=== PATIENT | male | born 1965 | race Caucasian/White ===

== ENCOUNTER → 2025-03-06 | Outpatient (CLI) | payer BC, SELFPAY ==
[2025-03-06 16:50] LABS: PSA,Total- Diagnostic 12.30 ng/mL (0.00-4.00)
== END | disposition home or self-care (01) ==
LOC: LAB 14:54
PROVIDERS: PCP Registered Nurse; Referring Provider Nurse Practitioner; Visit Provider Nurse Practitioner
DX: R97.20 Elevated prostate specific antigen [PSA] (principal)
CPT/HCPCS: 36415; 84153

== ENCOUNTER → 2025-03-15 | Outpatient (CLI) | payer BC, SELFPAY ==
--- NOTE | 2025-03-15 13:00 | PROSBIL_PTH ---
PATIENT: GUILLERMO ESPANA LOC: [facility] U#:[id number] AGE/SX: 59/M ROOM: RE03/15/[address]: Dr. Romaine Davis MD : 1965 BED: DIS: 03/15/2025 SPEC #: [id number] RECD: 03/15/25 16:26 STATUS: MARIE RECecil #: [id number] ALESSIA: 03/15/25 13:[address]: Romaine Davis DEPT: SURGICAL PATHOLOGY RECD BY: Estuardo Franco ENTERED: 03/16/25 13:18 SP TYPE: PROST BX JAMARCUS DR: Lona Delacruz, LAWN CARE SPECIALIST-C Tissues: A - PROSTATE RIGHT B - PROSTATE RIGHT C - PROSTATE RIGHT D - PROSTATE LEFT E - PROSTATE LEFT F - PROSTATE LEFT Procedures: PROSTATE BX Immunohistochemical Stains HEADER OPERATION: Prostate biopsy PRE-OP DIAGNOSIS: Elevated PSA TISSUE SUBMITTED: A - Right apex, B - Right mid, C - Right base, D - Left apex, E - Left mid, F - Left base MICROSCOPIC DIAGNOSIS A. Prostate, right apex, core biopsy: - Adenocarcinoma Junior 3+3=6, one of one core, 25% of the specimen. B. Prostate, right mid, core biopsy: - Benign prostate tissue. C. Prostate, right base, core biopsy: - High grade PIN. - PIN4 IHC supports the diagnosis. D. Prostate, left apex, core biopsy: - High grade PIN. - PIN4 IHC supports the diagnosis. E. Prostate, left mid, core biopsy: - Adenocarcinoma Junior 3+3=6, two of two cores, 50% of the specimen. F. Prostate, left base, core biopsy: - Adenocarcinoma Junior 3+4=7 (10% pattern 4), two of two cores, 95% of the specimen. MICROSCOPIC DESCRIPTION Slides are reviewed. ?All matched controls reacted appropriately. These tests were developed and their performance characteristics determined by [facility]. They may not have been cleared or approved by the U.S. Food and Drug Administration. The FDA has determined that such clearance or approval is not necessary.? The above immunohistochemical?markers and/or special stains have been reviewed by the Pathologist. GROSS DESCRIPTION Received in 6 formalin containers labeled with the patient's name and date of . Designated as: A. RA is a jennings tissue core, 1.8 cm in length by 0.1 cm in diameter. Entirely submitted in 1 cassette. B. RM are 2 jennings tissue cores, 1.4-1.6 cm in length by 0.1 cm in diameter. Entirely submitted in 1 cassette. C. RB are 2 jennings tissue cores, 1.3-1.5 cm in length by 0.1 cm in diameter. Entirely submitted in 1 cassette. D. LA is a jennings tissue core, 1.6 cm in length by 0.1 cm in diameter. Entirely submitted in 1 cassette. E. LM are 2 jennings tissue cores, 1.3-1.7 cm in length by 0.1 cm in diameter. Entirely submitted in 1 cassette. F. LB are 2 jennings tissue cores, 1.2-1.4 cm in length by 0.1 cm in diameter. Entirely submitted in 1 cassette. OH 03/16/2025 CPT:39954j7,30952c4
== END | disposition home or self-care (01) ==
LOC: LABSPEC 16:14
PROVIDERS: PCP Registered Nurse; Referring Provider Urology; Visit Provider Urology
DX: C61 Malignant neoplasm of prostate (principal)
CPT/HCPCS: 88305; 88342; G0416

== ENCOUNTER → 2025-04-03 | Outpatient (CLI) | payer BC, SELFPAY ==
--- NOTE | 2025-04-03 08:30 | PET_ITS ---
PROCEDURE: PET/CT TUMOR BASE -THIGH INIT 04/03/2025 REASON FOR EXAM: 59 y/o M with MALIGNANT NEOPLAM OF PROSTATE TECHNIQUE: Procedure Code: PETPTCTINIT Modality: PT Procedure: PET/CT TUMOR BASE -THIGH INIT After intravenous injection of 9.8 millicuries of PSMA Ga-68 Illuccix and a standard uptake period, a noncontrast CT scan, followed by a PET scan were acquired along the length of the body from the top of the skull to the mid thighs. The noncontrast helical CT imaging was performed without breath hold, for attenuation correction of PET images and anatomic Synthes correlation, but not for primary interpretation, as it is not of the standard diagnostic quality. Images were reviewed in the axial, coronal and sagittal planes. RADIATION DOSE SUMMARY: Effective Dose: Approximately 7 mSv for a standard whole-body PET scan Organ Doses: Varies by organ, with higher doses typically to the bladder, liver, and brain CTDI: 10.52 DLP: 1165.52 mGy cm COMPARISON: COMPARISON FROM CT, PET OR OTHER PERTINENT EXAMS: None. FINDINGS: Examination of the 3D tomographic PET images demonstrates expected uptake in the lacrimal glands, salivary glands, liver, spleen, kidneys, bowel and bladder. The intracranial contents appear unremarkable. There is nasal septal deviation to the right. There is no abnormal activity in the pulmonary parenchyma. There are no pleural effusions. The heart size is normal. There is calcific vascular disease of the coronary arteries. There is a large, partially paraesophageal hiatal hernia. There is an umbilical hernia containing normal fat measuring 2.1 cm in diameter. The prostate gland measures 4 point 7 cm in transverse dimension and contains coarse calcifications. Prostate bed: In the left peripheral zone, near the lower pole of the gland, there is an area of intense activity measuring 2.2 x 1.6 cm, max SUV 9.7. Lymph nodes: There is no abnormal lymph node activity. Skeleton: There is no abnormal skeletal activity. Uptake time: 60 minutes. Mediastinal blood pool: Max SUV, 1.9 BMI: 30.0 PET/PET/CT Tumor Base -Thigh Init IMPRESSION: 1. Intense activity in the left side of the prostate gland consistent with pro state carcinoma. 2. There is no abnormal lymph node or skeletal activity. 3. Large, partially paraesophageal hiatal hernia. E-PSMA score: 4 E- PSMA scoring: Score = 1: Benign lesion without abnormal PSMA uptake. Score = 2: Probably benign lesion: Faint PSMA uptake (equal to or lower than ba ckground) in the site atypical for prostate cancer. Score = 3: Equivocal finding: Faint uptake in a site typical for prostate cance r or intense uptake in a site atypical prostate cancer. Score = 4: Probably prostate cancer: Intense uptake and a site typical for pros almeida cancer, but without definitive findings on CT. Score = 5: Definitive evidence of prostate cancer: Intense uptake in a typical site of prostate cancer with definitive findings on CT. Reading Location: [id number]
== END | disposition home or self-care (01) ==
LOC: ONC 08:09
PROVIDERS: PCP Registered Nurse; Referring Provider Urology; Visit Provider Urology
DX: C61 Malignant neoplasm of prostate (principal)
CPT/HCPCS: 78815; A9595

== ENCOUNTER 2025-04-27 10:47 | Observation (INO) | payer BC, SELFPAY ==
--- NOTE | 2025-04-13 15:48 | PAT.ANE_ITS ---
Pre-Assessment Diagnosis/Proposed Procedure Planned Operative Procedure(s): ROBOTIC RADICAL PROSTATECTOMY AND LYMPH NODES Anesthesia History Anesthesia History - drop wire stringer: Anesthesia History - drop wire stringer Hx Hospitalization No 04/13/25 13:34 Any Problems With Anesthesia No 04/13/25 13:34 Cholinesterase deficiency No 04/13/25 13:34 You/Your Family Experience No 04/13/25 13:34 fever (hyperthermia) with Relationship Recent Exposure to Contagious Disease Does patient have nerve No 04/13/25 13:34 stimulator Patient instructed to have device shut off --Does patient have Pacemaker or ICD? When Was Last Pacemaker Check QUESTION #4 FULL TEXT: You/Your Family Experience fever (hyperthermia) with Anesthesia Last Oral Intake Last Oral intake: Last Oral Intake NPO since Meds taken in AM with sips of water? Meds patient instructed to take am of surgery PONV PONV - drop wire stringer: PONV - drop wire stringer Female No 04/13/25 13:34 HX of Motion Sickness No 04/13/25 13:34 HX of N/V After Surgery No 04/13/25 13:34 Non-Smoker Yes 04/13/25 13:34 Duration of Surgery greater Yes 04/13/25 13:34 than 60 minutes Number of Risk Factors 2 04/13/25 13:34 PONV Score Moderate Risk 04/13/25 13:34 Respiratory Assessment Respiratory Assessment - drop wire stringer: Respiratory Tract Infection Hx - drop wire stringer Hx Respiratory Tract Infection No 04/13/25 13:34 STOP Sleep Apnea STOP Sleep Apnea - drop wire stringer: STOP Sleep Apnea - drop wire stringer Hx Hypertension Yes: PER PT, CONTROLLED ON 04/13/25 13:34 MEDS Hx Sleep Apnea No 04/13/25 13:34 CPAP BIPAP Do you snore loudly (louder No 04/13/25 13:34 than talking or can be heard Do you often feel tired/ No 04/13/25 13:34 fatigued/ sleepy during daytime? Has anyone observed you stop No 04/13/25 13:34 breathing during sleep? STOP Results Negative 04/13/25 13:34 QUESTION #5 FULL TEXT : Do you snore loudly (louder than talking or can be heard through closed doors)? Tobacco Use History Tobacco Use History - drop wire stringer: Tobacco Use History - drop wire stringer Tobacco Use Smoking Status Never smoker 04/13/25 13:34 Hx Tobacco Use No 04/13/25 13:34 Years Smoking Packs Smoked per Day Smoking Cessation Date was within the last 15 years Hx Smoking Cessation Date Hx Smoking Cessation Counseling Hematologic Medial History Hematologic Hx - drop wire stringer: Hematologic Medical Hx - patient access coordinator Hx of Blood Transfusion No 04/13/25 13:34 Hx of Transfusion in last 3 No 04/13/25 13:34 Months Date of Last Transfusion (if within last 3 months) Ever experience any problems No 04/13/25 13:34 with transfusion(s)? Specify any problems Hx of Preganancy in last 3 N/A 04/13/25 13:34 Months Nurse Filling Out Transfusion MGRIFFITH 04/13/25 13:34 & Questions: Date: 04/13/25 04/13/25 13:34 Time: 13:36 04/13/25 13:34 Patient unable to answer at this time (ie. confused, unrespo /Reproduction History /Reproductive History - drop wire stringer: /Reproductive Hx- drop wire stringer Hx Now No 04/13/25 13:34 Gestational Age (in weeks): EDC: Hx Hx Para Hx Section SAB No 04/13/25 13:34 PFSH Medical History (Updated 04/13/25 @ 13:50 by Evelia Iyer) Wears partial dentures Wears dentures Cancer Non-smoker History of irregular heartbeat Hypertension History of stress test Chest pain Home Medications ?Medication ?Instructions ?Recorded ?Last Taken ?Type lisinopril 10 mg tablet 10 mg PO DAILY HTN 04/13/25 Unknown History multivit,Ca,min-iron 8 mg-folic 1 tab PO DAILY SUPPLEM ENT 04/13/25 Unknown History acid 200 mcg-lycopene 600 mcg tablet (Centrum Men) omega 3 350 mg-dha 235 mg-epa 90 1 cap PO DAILY SUPPLE MENT 04/13/25 Unknown History mg-fish oil 597 mg capsule,delay rel ([place]-3) Allergy/AdvReac Type Severity Reaction Status Date / Time No Known Allergies Allergy Verified 04/13/25 13:30 Surgical History (Updated 04/13/25 @ 13:45 by Evelia Iyer) History of colonoscopy History of tonsillectomy History of mandibular surgery Social History Smoking Status: Never smoker Audit: Pertinent Findings Pertinent Findings EKG Perinent findings: nsr Stress test pertinent findings: negative Recommendation Anesthesia Recommendation Anesthesia recommendation: OPTIMIZED for anesthesia
[2025-04-27] VITALS (15 sets, daily range): BP systolic 114–146; BP diastolic 70–91; PULSE 73–98; RESP 16; TEMP 36.1–37.2; O2SAT 91–99; BMI 29.3
[2025-04-27] MEDS: Lactated Ringers 1,000 ML 15 ML IV (09:04)
[2025-04-27 09:07] LABS: Hematocrit 47.1 % (40-54); Hemoglobin 16.9 g/dL (13.0-16.5); Immature Granulocytes Count 0.010 X10^3/uL (0.0-0.0); Mean Corp Hgb Conc 35.9 g/dL (32-36); Mean Corpuscular Volume 87.4 fL (80-94); Mean Platelet Vol. 9.9 fl (6.2-12.0); NRBC Flagged by Analyzer 0 % (0-5); Platelet Count 205 K/mm3 (150-450); RBC Distribution Width CV 12.5 % (11.6-14.6); RBC Distribution Width SD 40.0 fl (35.1-43.9); Red Blood Count 5.39 M/mm3 (4.6-6.2); White Blood Count 4.0 K/mm3 (4.4-11.0)
--- NOTE | 2025-04-27 09:19 | PCM.PRE.AN2 ---
ASA Classification* ASA Classification ASA Classification: 2 Assessment & Plan Anesthesia* Anesthesia Assessment Anesthesia Assessment: Discussed sedation and/or anesthesia options, risks, benefits, and alternatives with patient/parents/legal guardian/POA. Questions invited. The patient/parents/legal guardian/POA seems to understand and agrees to proceed with anesthesia plan. Reviewed the physical assessment, medical history, allergy history and patient home medications list prior to surgery/procedure/anesthetic and documented any changes. Performed airway and anesthesia risk assessments. Anesthesia Type Anesthesia Type: General History Source History Obtained from:: Patient and Chart Anesthesia Focused Assessment* Temperature: 98 F Pulse Rate: 73 Blood Pressure: 121/91 Respiratory Rate: 16 Pulse Ox: 99 Oxygen Delivery Method: Room Air Airway Assessment Mouth opens: >3 cm Mallampati Score: II Teeth Condition: Dentures and Missing Neck Range of motion (ROM): Full ROM Labs Anesthesia Preop lab: CBC WBC, (4.4-11.0) 4.0 K/mm3 L Today, 08:55 RBC, (4.6-6.2) 5.39 M/mm3 Today, 08:55 Hgb, (13.0-16.5) 16.9 g/dL H Today, 08:55 Hct, (40-54) 47.1 % Today, 08:55 Plt Count, (150-450) 205 K/mm3 Today, 08:55 CHEMISTRY COAG Pre-Assessment Diagnosis/Proposed Procedure Planned Operative Procedure(s): ROBOTIC RADICAL PROSTATECTOMY AND LYMPH NODES Anesthesia History Anesthesia History - voice over artist: Anesthesia History - voice over artist Hx Hospitalization No 04/13/25 13:34 Any Problems With Anesthesia No 04/13/25 13:34 Cholinesterase deficiency No 04/13/25 13:34 You/Your Family Experience No 04/13/25 13:34 fever (hyperthermia) with Relationship Recent Exposure to Contagious No 04/27/25 09:06 Disease Does patient have nerve No 04/13/25 13:34 stimulator Patient instructed to have device shut off --Does patient have Pacemaker No 04/27/25 09:06 or ICD? When Was Last Pacemaker Check QUESTION #4 FULL TEXT: You/Your Family Experience fever (hyperthermia) with Anesthesia Last Oral Intake Last Oral intake: Last Oral Intake NPO since 22:00 04/27/25 09:06 Meds taken in AM with sips of No 04/27/25 09:06 water? Meds patient instructed to take am of surgery PONV PONV - voice over artist: PONV - voice over artist Female No 04/13/25 13:34 HX of Motion Sickness No 04/13/25 13:34 HX of N/V After Surgery No 04/13/25 13:34 Non-Smoker Yes 04/13/25 13:34 Duration of Surgery greater Yes 04/13/25 13:34 than 60 minutes Number of Risk Factors 2 04/13/25 13:34 PONV Score Moderate Risk 04/13/25 13:34 Height & Weight Height & Weight: Anesthesia: Height & Weight Height 5 ft 11 in 04/27/25 09:06 Weight: 95.5 kg 04/27/25 09:06 Body Mass Index (BMI) 29.3 04/27/25 09:06 Respiratory Assessment Respiratory Assessment - voice over artist: Respiratory Tract Infection Hx - voice over artist Hx Respiratory Tract Infection No 04/13/25 13:34 STOP Sleep Apnea STOP Sleep Apnea - voice over artist: STOP Sleep Apnea - voice over artist Hx Hypertension Yes: PER PT, CONTROLLED ON 04/13/25 13:34 MEDS Hx Sleep Apnea No 04/13/25 13:34 CPAP BIPAP Do you snore loudly (louder No 04/13/25 13:34 than talking or can be heard Do you often feel tired/ No 04/13/25 13:34 fatigued/ sleepy during daytime? Has anyone observed you stop No 04/13/25 13:34 breathing during sleep? STOP Results Negative 04/13/25 13:34 QUESTION #5 FULL TEXT : Do you snore loudly (louder than talking or can be heard through closed doors)? 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 Specify any problems Hx of Preganancy in last 3 N/A 04/13/25 13:34 Months Nurse Filling Out Transfusion MGRIFFITH 04/13/25 13:34 & Questions: Date: 04/13/25 04/13/25 13:34 Time: 13:36 04/13/25 13:34 Patient unable to answer at this time (ie. confused, unrespo /Reproduction History /Reproductive History - voice over artist: /Reproductive Hx- voice over artist Hx Now No 04/13/25 13:34 Gestational Age (in weeks): EDC: Hx Hx Para Hx Section SAB No 04/13/25 13:34 Active Medications Active Medications: Current Medications Generic Name Dose Route Start Last Admin Trade Name Freq PRN Reason Stop Dose Admin Cefazolin Sodium 2 gm/ Sodium 110 mls @ 200 mls/hr 04/27/25 10:30 Chloride IV 04/27/25 11:02 INTRAOP ONE Lactated Ringer's 1,000 mls @ 15 mls/hr 04/27/25 08:30 04/27/25 09:04 IV 15 mls/hr .Q48H DARIO Administration PFSH Medical History Wears partial dentures Wears dentures Cancer Non-smoker History of irregular heartbeat Hypertension History of stress test Chest pain Home Medications ?Medication ?Instructions ?Recorded ?Last Taken ?Type lisinopril 10 mg tablet 10 mg PO DAILY HTN 04/13/25 04/26/25 History multivit,Ca,min-iron 8 mg-folic 1 tab PO DAILY SUPPLEMENT 04/13/25 04/26/25 History acid 200 mcg-lycopene 600 mcg tablet (Centrum Men) omega 3 350 mg-dha 235 mg-epa 90 1 cap PO DAILY SUPPLEMENT 04/13/25 04/26/25 History mg-fish oil 597 mg capsule,delay rel ([place]-3) Allergy/AdvReac Type Severity Reaction Status Date / Time No Known Allergies Allergy Verified 04/27/25 08:46 Surgical History History of colonoscopy History of tonsillectomy History of mandibular surgery Social History Smoking Status: Never smoker Review of Systems (Anesthesia) ROS Narrative System reviewed and no additional complaints, except as documented.
--- NOTE | 2025-04-27 10:30 | PROST_PTH ---
PATIENT: GUILLERMO ESPANA LOC: [facility] U#:[id number] AGE/SX: 59/M ROOM: [facility] RE04/27/[address]: Dr. Romaine Davis MD : 1965 BED: 1 DIS: 04/28/2025 SPEC #: [id number] RECD: 04/30/25 08:27 STATUS: MARIE RECecil #: [id number] ALESSIA: 04/27/25 10:[address]: Romaine Davis DEPT: SURGICAL PATHOLOGY RECD BY: Estuardo Franco ENTERED: 04/30/25 09:36 SP TYPE: PROSTATE OTHR DR: Lona Delacruz, SPINDRAW OPERATOR-C Tissues: A - Prostate, NOS Procedures: Surgery Specimen Level IV Surgery Specimen Level HEADER OPERATION: Robotic radical prostatectomy PRE-OP DIAGNOSIS: Malignant neoplasm of prostate, nodular prostate without lower urinary tract symptoms, elevated prostate specific antigen TISSUE SUBMITTED: A- Fat over prostate, B- Right pelvic lymph node, C- Left pelvic lymph node, D- Prostate MICROSCOPIC DIAGNOSIS A. Fat over prostate, robotic radical prostatectomy: * Negative for malignancy. B. Lymph node, pelvic, right, excision: * Negative for metastasis (0/1). C. Lymph node, pelvic, left, excision: * Negative for metastasis (0/1). D. Prostate, robotic radical prostatectomy: * Invasive prostatic adenocarcinoma Junior 3+4=7 (pattern 4 approximately 40%), closely approaching and possibly involving the left lateral posterior margin, with multifocal extra-prostatic extension. * Involving approximately 25% of the specimen. * Focal lymphovascular invasion noted, extensive perineural invasion. * One lymph node negative for metastasis (0/1). * pT3a, pN0 * See Synoptic Report/Comments. SYNOPTIC REPORT FOR CARCINOMA OF THE PROSTATE: Procedure:?RADICAL PROSTATECTOMY Histologic type:?ACINAR Junior score:?3+4=7 Grade group (1-5):?2 % pattern 4 in Junior 3+4=7:?approximately 40% % tumor:?approximately 25% ? Tumor extent (n=no, y=yes, na=not applicable):?Extraprostatic extension (f=focal, m=multifocal):?m ? Location of extraprostatic extension:?left lateral posterior ?? Microscopic invasion of bladder neck:?n ?? Seminal vesicle muscle wall invasion:?n ? Margins of main specimen (n=negative, p=positive, na=not applicable):?see Comments (below). ?? Distance of tumor to closest margin (cm):?see Comments. ?? Longest contiguous positive margin (cm):?see Comments. ?? Positive margin location:?possible left lateral posterior (see Comments). ? Regional lymph nodes: ?? Number examined:?3 ?? Number positive:?0 ? Additional:?focal lymphovascular invasion noted (D14); extensive perineural invasion pTNM:?pT3a N0 Comments:?There is possible focal involvement of the left lateral posterior surgical margin (D13, potential 2-3 mm span); however, cautery artifact limits the evaluation in this area. Otherwise, the tumor approaches the left lateral posterior margin at < 0.3 mm (D11, D13, D14) and the right lateral posterior surgical margin at < 0.5 mm (D12). ? Grade Group Definitions 1=Junior 5-6,?2=Junior 3+4=7;?3=Junior 4+3=7,?4=Junior 8;?5=[place] 9-10 ? Pathologic Staging Definitions (pTNM) Primary Tumor (pT) pT2:? Organ confined pT3a:??? Extraprostatic extension (focal is <1 high power field in 1-2 slides, multifocal is more) or Microscopic invasion of bladder neck (in thick muscle, no adjacent non-neoplastic glands) pT3b:??? Seminal vesicle muscle wall invasion pT4:? Invasion of external sphincter, rectum, bladder, levator muscles or pelvic wall Regional Lymph Nodes (pN) (periprostatic, pelvic, hypogastric, obturator, fossa of [place], internal iliac, external iliac, sacral) pNX:? Cannot be assessed pN0:? No regional lymph node metastasis pN1:? Regional lymph node metastasis ? The above synoptic report complies, in slightly modified form, with the guidelines of the [employer] [place] [employer] and the Association of Directors of Anatomic and Surgical Pathology for the reporting of cancer specimens ? MICROSCOPIC DESCRIPTION Slides are reviewed. GROSS DESCRIPTION Received in 4 formalin containers labeled with the patient's name and date of . Designated as: A. Fat over prostate is a 3.7 x 2.9 x 0.6 cm portion of jennings-yellow, focally congested fat. Entirely submitted in 3 cassettes. B. Right pelvic lymph node is a 5.6 x 3.5 x 1.6 cm aggregate of a jennings-yellow, focally congested fat. Sectioning reveals semi-firm cut surfaces. Entirely submitted in 5 cassettes. C. Left pelvic lymph node is a 4.9 x 2.9 x 2.2 cm aggregate of jennings-yellow, focally congested fat. Sectioning reveals semifirm, gritty cut surfaces. Entirely submitted in 4 cassettes. D. Prostate is a 49.6 g radical prostatectomy with attached bilateral adnexa, measuring 5.1 (LR) x 4.7 (AB) x 4.0 (AP) cm. The capsule is shaggy however, no definitive defects are grossly present. The specimen is inked as follows: Left: GreenRight: BlueAnterior: OrangePosterior: Black The specimen is serially sectioned from apex to base to 10 slices revealing jennings-yellow to white, spongy parenchyma with a jennings-yellow to white, firm mass with irregular borders spanning slices #2-#7 and involving the left, lateral and posterior aspect of the prostate; the mass measures 2.1 x 2.0 x 1.5 cm and abuts the overlying inked. The left and right seminal vesicles/vasa deferentia measure as follows:Left vas deferens: 2.0 x 0.8 cmLeft seminal vesicle: 2.7 x 1.8 x 1.0 cmRight vas deferens 3.0 x 0.8 cmRight seminal vesicle: 2.5 x 1.6 x 1.3 cm Pot Press Operator sections are submitted, sequentially from apex to base as follows: Slice #1, apex (entirely submitted):D1: Left, radially sectionedD2: Right, radially sectioned Slice #2, apex (entirely submitted):D3-D4: LeftD5-D6: RightSlice #3, mid (50% submitted):D7: Left lateral/posterior with massD8: Left lateral/anterior with massSlice #4, mid (50% submitted):D9: Left lateral/posterior with massD10: Right lateral/posteriorSlice #5, mid (50% submitted):D11: Left lateral/posterior with massD12: Right lateral/posteriorSlice #6, mid (25% submitted):D13: Left lateral/posterior with mass Slice #7, base (50% submitted):D14: Left lateral/posterior with massD15: Right lateral/posteriorSlice #9, base (50% submitted):D16: Left adnexa insertion, [id number]: Right adnexa insertion, perpendicular Slice #10, base (entirely submitted):D18: Left, radially [id number]: Right, radially sectionedVasa Deferentia (entirely submitted):D20: Left, serially [id number]: Right, serially sectioned Seminal vesicles (entirely submitted)D22: Left, serially [id number]: Right, serially sectioned SC 04/30/2025 CPT:47601,[id number]
[2025-04-27] MEDS: Cefazolin 1 GM/5 ML Vial 2 GM IV (10:34)
[2025-04-27] MEDS: Lidocaine 1% (5 ml sdv) 5 ML Vial IV (10:38)
--- NOTE | 2025-04-27 10:50 | DCINST_ITS ---
Discharge Instructions DC O2, CPAP, BIPAP needs Home O2 Discharge instructions: No Dressing / Incision Discharge Activity: Return to Normal Activity, May Not Drive and May Shower Return to work on:: 06/01/25 Dressing / Incision Call your doctor if your incision/area has: Continuous Slow Oozing, Sudden Increased Bleeding and Increased Pain/ Swelling Call your doctor if you observe: Fever of 101 or Higher, Inability to have a bowel movement and Uncontrolled pain Suture Line Care: Avoid Pulling/Pushing and Avoid Pinching/Bending Cleanse incision/area with: Soap & Water Catheter: [place] to leg bag and [place] to large bag Drain: [place] Follow Up Care Please Follow Up With: Romaine Davis MD When: Call [phone] for an appointment Test Results: Test results from this visit will be discussed in further detail at your follow- up appointment, if applicable. Discharge Plan Admission Primary Reason for Your Visit: radical prostatectomy Attending Provider: Romaine Davis Primary Care Provider: Lona Delacruz NP Instructions Print Language: [place] Discharge Orders/Prescriptions Prescriptions: New ciprofloxacin HCl [Cipro] 500 mg tablet 500 mg PO BID Qty: 20 0RF docusate sodium [Colace] 100 mg capsule 100 mg PO BID Qty: 20 0RF oxycodone 5 mg tablet 5 mg PO Q6H PRN (Reason: pain) 7 Days Qty: 14 0RF Continued lisinopril 10 mg tablet 10 mg PO DAILY [place]-3 350 mg-235 mg- 90 mg-597 mg capsule,delayed release(DR/EC) 1 cap PO DAILY Centrum Men 8 mg iron- 200 mcg-600 mcg tablet 1 tab PO DAILY Referrals / Follow Up: Romaine Davis MD [Med Staff - Active Staff, Urology] Lona Delacruz NP, [employer] [Primary Care Provider, Family Practice] Disposition Disposition (needs filled in before D/C Order can be placed): Home, Self Care
[2025-04-27] MEDS: fentaNYL 100 MCG/2 ML Ampul IV (12:13)
--- OUTSIDE RECORDS SUMMARY | 2025-04-27 12:44 | XMS RPT_ITS | CCD ---
Author Organization [facility] Care Team Providers Care Operations Board[place] Name Role Phone WILLIAN MARSHALL, RAY Hernández Primary Care Physician GARCIA BISQUE [employer], LONA Brooks Primary Care Physi paras GARCIA BISQUE [employer], LONA A Primary Care Un available GARCIA BIS[employer], LONA A Attending Un available GARCIA BISQUE [employer], LONA A Attending Un available GARCIA BIS[employer], LONA A Primary Care Un available GARCIA [employer]IS[employer], LONA A Attending Un available GARCIA BIS[employer], LONA A Primary Care Un available DR JUNE APPLE MD Attending Freddy donis GARCIA [employer], LONA A Primary Care Un available GARCIA B[employer], LONA A Attending Un available GARCIA B[employer], LONA A Primary Care Un available GARCIA BISQUE [employer], LONA A Primary Care Un available MARIA E EM MD Attending Unavail able GARCIA [employer], LONA A Attending Un available GARCIA B[employer], LONA A Primary Care Un available Garcia ACCREDITED FARM MANAGER-C, Lona Primary Care Provider Kiara Pearson Attending Provider [phone] Kiara Pearson Referring Provider Ryan MARSHALL, Dr. Romaine Rivera Attending Provider Dr. Romaine Davis MD Referring Provider Romaine Davis Referring Unavailable Romaine Davis Attending Unavailable Garcia DIANA, [facility] Unavailabl e Ryan, Romaine Rivera Referring Unavailable Ryan, Romaine Rivera Attending Unavailable Romaine Davis Admitting Unavailable Garcia ACCREDITED FARM MANAGER, [facility] Unavailabl e Ryan, Romaine Rivera Attending Unavailable Garcia DIANA, [facility] Unavailabl e Ryan, Romaine Rivera Referring Unavailable [place], Kiara Referring Unavailable [place], Kiara Attending Unavailable Garcia ACCREDITED FARM MANAGER, [facility] Unavailabl e Medications Current Medications Medication Drug Class(es) Dates Sig (Normalized) Sig (Original) ascorbic acid 500 mg oral tablet (1 source) Vitamin C Start: 10-26-2020 Vitamin C 500 mg oral tablet Dose : 500 mg = 1 tab(s), Oral, qDay, # 30 tab(s), 0 Refill(s) Start Date: 10/26/20 Status: Ordered cyclobenzaprine hydrochloride 10 mg oral tablet (1 source) Muscle Relaxant Start: 11-05-2020 cyclobenzaprine 10 mg oral tablet Dose : 10 mg = 1 tab(s), Oral, TID, PRN for muscle spasm, Watch for drowsiness, # 15 tab(s), 1 Refill(s), Pharmacy: [facility]/pharmacy #[id number], 182, cm, 10/26/20 10:13:00 EDT, Height, kg, 10/26/20 10:13:00 EDT, Dosing Weight Start Date: 11/05/20 Status: Ordered Fish Oils (5 sources) Start: 12-17-2017 Fish Oil 1200 mg oral capsule Dose : 3,600 mg = 3 cap(s), Oral, qDay, 0 Refill(s) Start Date: 12/17/17 Status: Ordered Repeat number: 1 Start: 12-17-2017 Fish Oil 1200 mg oral capsule Dose : 3,600 mg = 3 cap(s), Oral, qDay, 0 Refill(s) Start Date: 12/17/17 Status: Ordered Start: 12-17-2017 Fish Oil 1200 mg oral capsule Dose : 1,200 mg = 1 cap(s), Oral, BID, 0 Refill(s) Start Date: 12/17/17 Status: Ordered lisinopril 10 mg oral tablet (4 sources) Angiotensin Converting Enzyme Inhibitor Start: 01-26-2025 End: 01-21-2026 lisinopril 10 mg oral tablet Dose : 10 mg = 1 tab(s), Oral, qDay, # 90 tab(s), 3 Refill(s), [id number], HTN (hypertension), 181.5, cm, 01/26/25 13:01:00 EDT, Height, kg, 01/26/25 13:01:00 EDT, Dosing Weight Start Date: 01/26/25 Stop Date: 01/21/26 Status: Ordered Quantity: 90.0 Unit: tab(s) Repeat number: 4 Indications: Essential (primary) hypertension; Start: 06-18-2023 End: 06-12-2024 lisinopril 10 mg oral tablet Dose : 10 mg = 1 tab(s), Oral, qDay, # 90 tab(s), 3 Refill(s), [id number], HTN (hypertension), 181.5, cm, 06/18/23 14:36:00 EST, Height, kg, 06/18/23 14:31:00 EST, Dosing Weight Start Date: 06/18/23 Stop Date: 06/12/24 Status: Ordered Quantity: 90.0 Unit: tab(s) Repeat number: 4 Indications: Essential (primary) hypertension; Multivitamin preparation (4 sources) Start: 06-18-2023 take 1 tablet by mouth once daily Multivitamin Dose = 1 tab(s), Oral, Daily, 0 Refill(s) Start Date: 06/18/23 Status: Ordered Repeat number: 1 Start: 06-18-2023 take 1 tablet by matteo th once daily Multivitamin Dose = 1 tab(s), Oral, Daily, 0 Refill(s) Start Date: 06/18/23 Status: Ordered Vitamin C 500 mg oral tablet (4 sources) Start: 10-26-2020 Vitamin C 500 mg oral tablet Dose : 500 mg = 1 tab(s), Oral, qDay, # 30 tab(s), 0 Refill(s) Start Date: 10/26/20 Status: Ordered Quantity: 30.0 Unit: tab(s) Repeat number: 1 Start: 10-26-2020 Vitamin C 500 mg oral tablet Dose : 500 mg = 1 tab(s), Oral, qDay, # 30 tab(s), 0 Refill(s) Start Date: 10/26/20 Status: Ordered Problems Problem Classification Problem Date Documented Date Episodic/Chronic Cancer of prostate (1 source) Malignant neoplasm of prostate; Translations: [Malignant neoplasm of prostate] Onset: 5 Chronic Disorders of lipid metabolism (5 sources) Hypercholesterolemia 12-17-2017 Chronic Essential hypertension (7 sources) Benign essential hypertension; Translations: [Essential (primary) hypertension] Onset: 3 10-26-2020 Chronic Nonspecific chest pain (2 sources) Chest pain; Translations: [Chest pain, unspecified] Onset: 5 Episodic Other screening for suspected conditions (not mental disorders or infectious disease) (1 source) Elevated prostate specific antigen [PSA]; Translations: [Elevated prostate specific antigen [PSA]] Onset: 5 Episodic Unclassified (8 sources) Patient encounter status 06-18-2023 Results Test Name Value Interpretation Reference Range Facility MR/PATSekou 04-13-2025 MR/PAT.[facility] Medical Records Department [address] [place] [address] PAT - Anesthesia 04/13/25 1548 MR#: [id number] Acct: [id number] Name: GUILLERMO ESPANA Gabe Rep #: [id number] : 1965 59 From: Aurelio Painting MD PCP: JOSE Herrera Status:PRE IN Y Race: C Location: [facility] Pre-Assessment Diagnosis/Proposed Procedure Planned Operative Procedure(s): ROBOTIC RADICAL PROSTATECTOMY AND LYMPH NODES Anesthesia History 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 When Was Last Pacemaker Check QUESTION #4 FULL TEXT: You/Your Family Experience fever (hyperthermia) with Anesthesia Last Oral Intake Last Oral intake: Last Oral Intake NPO since Meds taken in AM with sips of water? Meds patient instructed to take am of surgery PONV PONV - arch cushion press operator: PONV - arch cushion press operator Female No 04/13/25 13:34 HX of Motion Sickness No 04/13/25 13:34 HX of N/V After Surgery No 04/13/25 13:34 Non-Smoker Yes 04/13/25 13:34 Duration of Surgery greater Yes 04/13/25 13:34 than 60 minutes Number of Risk Factors 2 04/13/25 13:34 PONV Score Moderate Risk 04/13/25 13:34 Respiratory Assessment Respiratory Assessment - arch cushion press operator: Respiratory Tract Infection Hx - arch cushion press operator Hx Respiratory Tract Infection No 04/13/25 13:34 STOP Sleep Apnea STOP Sleep Apnea - arch cushion press operator: STOP Sleep Apnea - arch cushion press operator Hx Hypertension Yes: PER PT, CONTROLLED ON 04/13/25 13:34 MEDS Hx Sleep Apnea No 04/13/25 13:34 CPAP BIPAP Do you snore loudly (louder No 04/13/25 13:34 than talking or can be heard Do you often feel tired/ No 04/13/25 13:34 fatigued/ sleepy during daytime? Has anyone observed you stop No 04/13/25 13:34 breathing during sleep? STOP Results Negative 04/13/25 13:34 QUESTION #5 FULL TEXT : Do you snore loudly (louder than talking or can be heard through closed doors)? 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 Specify any problems Hx of Preganancy in last 3 N/A 04/13/25 13:34 Months Nurse Filling Out Transfusion MGRISVENITH 04/13/25 13:34 Questions: Date: 04/13/25 04/13/25 13:34 Time: 13:36 04/13/25 13:34 Patient unable to answer at this time (ie. confused, unrespo /Reproducti on History /Reproducti ve History - arch cushion press operator: /Reproducti ve Hx- arch cushion press operator Hx Now No 04/13/25 13:34 Gestational Age (in weeks): EDC: Hx Hx Para Hx Section SAB No 04/13/25 13:34 [facility] Medical History (Updated 04/13/25 @ 13:50 by Evelia Iyer) Wears partial dentures Wears dentures Cancer Non-smoker History of irregular heartbeat Hypertension History of stress test Chest pain Home Medications ???Medication ???Instructions ???Recorded ???Last Taken ???Type lisinopril 10 mg tablet 10 mg PO DAILY HTN 04/13/25 Unknow n History multivit,Ca,min-iron 8 mg-folic 1 tab PO DAILY SUPPLEMENT 04/13/25 Unknown History acid 200 mcg-lycopene 600 mcg tablet (Centrum Men) omega 3 350 mg-dha 235 mg-epa 90 1 cap PO DAILY SUPPLEMENT 04/13/25 Unknown History mg-fish oil 597 mg capsule,delay rel ([place]-3) Allergy/AdvReac Type Severity Reaction Status Date / Time No Known Allergies Allergy Verified 04/13/25 13:30 Surgical History (Updated 04/13/25 @ 13:45 by Evelia Iyer) History of colonoscopy History of tonsillectomy History of mandibular surgery Social History Smoking Status: Never smoker Audit: Pertinent Findings Pertinent Findings EK (more content not included)... Normal [facility] PET/CT Tumor Base -Thigh Ini ton 04-03-2025 PET/CT Tumor Base -Thigh Init [facility] Imaging Services [address] [place] [address] PET/CT Tumor Base -Thigh Init MR#: [id number] Acct: [id number] Name: GUILLERMO ESPANA Rep #: [id number] : 1965 M 59 From: James Livingston MD PCP: JOSE Herrera Status: REG CLI Study: PET/CT Tumor Base -Thigh Init Date of Exam: Exam# [id number] Ordering Dr: Romaine Davis MD PROCEDURE: PET/CT TUMOR BASE -THIGH INIT 04/03/2025 REASON FOR EXAM: 59 y/o M with MALIGNANT NEOPLAM OF PROSTATE TECHNIQUE: Procedure Code: PETPTCTINIT Modality: PT Procedure: PET/CT TUMOR BASE -THIGH INIT After intravenous injection of 9.8 millicuries of PSMA Ga-68 Illuccix and a standard uptake period, a noncontrast CT scan, followed by a PET scan were acquired along the length of the body from the top of the skull to the mid thighs. The noncontrast helical CT imaging was performed without breath hold, for attenuation correction of PET images and anatomic Synthes correlation, but not for primary interpretation, as it is not of the standard diagnostic quality. Images were reviewed in the axial, coronal and sagittal planes. RADIATION DOSE SUMMARY: Effective Dose: Approximately 7 mSv for a standard whole-body PET scan Organ Doses: Varies by organ, with higher doses typically to the bladder, liver, and brain CTDI: 10.52 DLP: 1165.52 mGy cm COMPARISON: COMPARISON FROM CT, PET OR OTHER PERTINENT EXAMS: None. FINDINGS: Examination of the 3D tomographic PET images demonstrates expected uptake in the lacrimal glands, salivary glands, liver, spleen, kidneys, bowel and bladder. The intracranial contents appear unremarkable. There is nasal septal deviation to the right. There is no abnormal activity in the pulmonary parenchyma. There are no pleural effusions. The heart size is normal. There is calcific vascular disease of the coronary arteries. There is a large, partially paraesophageal hiatal hernia. There is an umbilical hernia containing normal fat measuring 2.1 cm in diameter. The prostate gland measures 4 point 7 cm in transverse dimension and contains coarse calcifications. Prostate bed: In the left peripheral zone, near the lower pole of the gland, there is an area of intense activity measuring 2.2 x 1.6 cm, max SUV 9.7. Lymph nodes: There is no abnormal lymph node activity. Skeleton: There is no abnormal skeletal activity. Uptake time: 60 minutes. Mediastinal blood pool: Max SUV, 1.9 BMI: 30.0 PET/PET/CT Tumor Base -Thigh Init IMPRESSION: 1. Intense activity in the left side of the prostate gland consistent with prostate carcinoma. 2. There is no abnormal lymph node or skeletal activity. 3. Large, partially paraesophageal hiatal hernia. E-PSMA score: 4 E- PSMA scoring: Score = 1: Benign lesion without abnormal PSMA uptake. Score = 2: Probably benign lesion: Faint PSMA uptake (equal to or lower than background) in the site atypical for prostate cancer. Score = 3: Equivocal finding: Faint uptake in a site typical for prostate cancer or intense uptake in a site atypical prostate cancer. Score = 4: Probably prostate cancer: Intense uptake and a site typical for prostate cancer, but without definitive findings on CT. Score = 5: Definitive evidence of prostate cancer: Intense uptake in a typical site of prostate cancer with definitive findings on CT. Reading Location: [id number] CC: ACCREDITED FARM MANAGER-C Lona Zelaya; Dr. Romaine Davis MD Sugarcane Research Technician: Signed Normal [facility] Surgical pathology reportOrd ered By: Loretta Jernigan on 03-23-2025 Surgical pathology study [facility] Immunohistochemical Stainson 03-15-2025 Immunohistochemical Stains Patient Age/Sex Location Account Attending Physician GUILLERMO ESPANA/M LABSPEC [id number] Dr. Romaien Davis MD Specimen: [id number] Received: 03/15/25 Status: MARIE Shelton Num: [id number] Spec Type: PROST BX Subm Dr: Dr. Romaine Davis MD HEADER OPERATION: Prostate biopsy PRE-OP DIAGNOSIS: Elevated PSA TISSUE SUBMITTED: A - Right apex, B - Right mid, C - Right base, D - Left apex, E - Left mid, F - Left base MICROSCOPIC DIAGNOSIS A. Prostate, right apex, core biopsy: - Adenocarcinoma [place] 3+3=6, one of one core, 25% of the specimen. B. Prostate, right mid, core biopsy: - Benign prostate tissue. C. Prostate, right base, core biopsy: - High grade PIN. - PIN4 IHC supports the diagnosis. D. Prostate, left apex, core biopsy: - High grade PIN. - PIN4 IHC supports the diagnosis. E. Prostate, left mid, core biopsy: - Adenocarcinoma [place] 3+3=6, two of two cores, 50% of the specimen. F. Prostate, left base, core biopsy: - Adenocarcinoma [place] 3+4=7 (10% pattern 4), two of two cores, 95% of the specimen. MICROSCOPIC DESCRIPTION Slides are reviewed. ???All matched controls reacted appropriately. These tests were developed and their performance characteristics determined by [facility]. They may not have been cleared or approved by the U.S. Food and Drug Administration. The FDA has determined that such clearance or approval is not necessary.??? The above immunohistochemical? ??markers and/or special stains have been reviewed by the Pathologist. GROSS DESCRIPTION Received in 6 formalin containers labeled with the patient's name and date of . Designated as: A. RA is a jennings tissue core, 1.8 cm in length by 0.1 cm in diameter. Entirely submitted in 1 cassette. B. RM are 2 jennings tissue cores, 1.4-1.6 cm in length by 0.1 cm in diameter. Entirely submitted in 1 cassette. C. RB are 2 jennings tissue cores, 1.3-1.5 cm in length by 0.1 cm in diameter. Entirely submitted in 1 cassette. D. LA is a jennings tissue core, 1.6 cm in length by 0.1 cm in diameter. Entirely submitted in Patient Age/Sex Location Account Attending Physician [id number]. Romaine Davis MD 1 cassette. E. LM are 2 jennings tissue cores, 1.3-1.7 cm in length by 0.1 cm in diameter. Entirely submitted in 1 cassette. F. LB are 2 jennings tissue cores, 1.2-1.4 cm in length by 0.1 cm in diameter. Entirely submitted in 1 cassette. IN 03/16/2025 CPT:05931m6,17795e7 Patient Age/Sex Location Account Attending Physician GUILLERMO ESPANA 59/M LABSPEC [id number] Dr. Romaine Davis MD Signed (signature on file) Dr. Loretta Jernigan MD 03/23/25 1724 [facility] Comment on above: Performed By: #### P IMHI #### [facility] [address] [place], [place], [address] PSA,Total- Diagnosticon 08-0 PSA, DIAGNOSTIC 12.30 ng/mL High 0.00-4.00 [facility] Comment on above: Result Comment: This test was performed using the [employer] tPSA method. Measured values of a patient??sample can vary depending on the testing procedure used. PSA values determined on patient samples by different testing procedures cannot be used interchangeably. If there is a change in PSA assays while monitoring therapy, sequential testing should be performed to confirm baseline values. Performed By: #### L [id number] #### [facility] [address] [place], [place], [address] .GFRon 02-10-2025 Estimated Glomerular Filtration Rate 103 ml/min/1.73sqm Normal [facility] Comment on above: Result Comment: Stages of Chronic Kidney Disease (CKD) Stage Description eGFR(ml/min/1.73 sq.m.) CKD 1 Normal kidney function or >=90 normal kindney function with possible kidney damage (ex. Proteinuria) CKD 2 Kidney damage with mild loss 60-89 of kidney function CKD 3a Mild to moderate loss of kidney 45-59 function CKD 3b Moderate to severe loss of 30-44 of kindey function CKD 4 Severe loss of kidney function 15-29 CKD 5 Kidney failure <15 Note: (go live 2024) the eGFR calculation was updated to the 2020 CKD-EPI creatinine equation without a race factor to calculate the eGFR results. Performed By: #### P SA, A1C, GFR, BMP, LIPID #### [facility] [address] [place], [place] [address] A1Con 02-10-2025 Glucose [Mass/Vol] 105 mg/dL Normal [facility] Comment on above: Result Comment: Laura mated Average Glucose calculated by equation ((28.7xA1C)-46.7) Estimated average glucose (eAG) is a calculated value from Hemoglobin A1C and is client representative of the average blood glucose level in the last 2-3 month period. Normal range: less than 114 mg/dL Performed By: #### P SA, A1C, GFR, BMP, LIPID #### [address] [address] HbA1c (Bld) [Mass fraction] 5.3 % Normal 4.3-6.4 [facility] Comment on above: Performed By: #### P SA, A1C, GFR, BMP, LIPID #### [address] [address] BMPon 02-10-2025 BUN/Creatinine Ratio 15 ratio Normal 7-27 [facility] Comment on above: Performed By: #### P SA, A1C, GFR, BMP, LIPID #### [address] [address] Calcium [Mass/Vol] 9.1 mg/dL Normal 8.4-10.2 [facility] Comment on above: Performed By: #### P SA, A1C, GFR, BMP, LIPID #### [address] [address] Chloride [Moles/Vol] 102 mmol/L Normal 98-107 [facility] Comment on above: Performed By: #### P SA, A1C, GFR, BMP, LIPID #### [address] [address] CO2 [Moles/Vol] 31 mmol/L High 22-29 [facility] Comment on above: Performed By: #### P SA, A1C, GFR, BMP, LIPID #### [address] [address] Creatinine [Mass/Vol] 0.79 mg/dL Normal 0.67-1.17 [facility] Comment on above: Performed By: #### P SA, A1C, GFR, BMP, LIPID #### [address] [address] Electrolyte Balance 6.0 mEq/L Normal 4.0-15.0 [facility] Comment on above: Performed By: #### P SA, A1C, GFR, BMP, LIPID #### [address] [address] Glucose [Mass/Vol] 97 mg/dL Normal 70-105 [facility] Comment on above: Performed By: #### P SA, A1C, GFR, BMP, LIPID #### [address] [address] Potassium [Moles/Vol] 4.0 mmol/L Normal 3.5-5.1 [facility] Comment on above: Performed By: #### P SA, A1C, GFR, BMP, LIPID #### [address] [address] Sodium [Moles/Vol] 139 mmol/L Normal 136-145 [facility] Comment on above: Performed By: #### P SA, A1C, GFR, BMP, LIPID #### [address] [address] Urea nitrogen [Mass/Vol] 12 mg/dL Normal 7-18 [facility] Comment on above: Performed By: #### P SA, A1C, GFR, BMP, LIPID #### [address] [address] LABORATORYOrdered By: SYSTEM SYSTEM on 02-10-2025 Calcium [Mass/Vol] 9.1 mg/dL Normal 8.4 - 10. 2 mg/dL AO ADM SS Chloride [Moles/Vol] 102 mmol/L Normal 98 - 10 7 mmol/L AO ADM SS CO2 [Moles/Vol] 31 mmol/L High 22 - 29 mmol/L AO ADM SS Creatinine [Mass/Vol] 0.79 mg/dL Normal 0.67 - 1.17 mg/dL AO ADM SS Electrolyte Balance 6.0 mEq/L Normal 4.0 - 15 .0 mEq/L AO ADM SS Estimated Glomerular Filtration Rate 103 ml/min/1.73sqm Invalid Interpretation Code AO Chemistry S Comment on above: Interpretive Data: Stages of Chronic Kidney Disease (CKD) Stage Description eGFR(ml/min/1.73 sq.m.) CKD 1 Normal kidney function or >=90 normal kindney function with possible kidney damage (ex. Proteinuria) CKD 2 Kidney damage with mild loss 60-89 of kidney function CKD 3a Mild to moderate loss of kidney 45-59 function CKD 3b Moderate to severe loss of 30-44 of kindey function CKD 4 Severe loss of kidney function 15-29 CKD 5 Kidney failure <15 Note: (go live 2024) the eGFR calculation was updated to the 2020 CKD-EPI creatinine equation without a race factor to calculate the eGFR results. Glucose [Mass/Vol] 105 mg/dL Invalid Interpretation Code AO Chemistry S Comment on above: Interpretive Data: E stimated average glucose (eAG) is a calculated value from Hemoglobin A1C and is client representative of the average blood glucose level in the last 2-3 month period. Normal range: less than 114 mg/dL Glucose [Mass/Vol] 97 mg/dL Normal 70 - 105 mg/dL AO ADM SS HbA1c (Bld) [Mass fraction] 5.3 % Normal 4.3 - 6.4 % AO ADM SS Potassium [Moles/Vol] 4.0 mmol/L Normal 3.5 - 5.1 mmol/L AO ADM SS Prostate specific Ag [Mass/Vol] 12.48 ng/mL High 0.00 - 4.00 ng/mL AO ADM SS Sodium [Moles/Vol] 139 mmol/L Normal 136 - 145 mmol/L AO ADM SS Urea nitrogen [Mass/Vol] 12 mg/dL Normal 7 - 18 mg/dL AO ADM SS Urea nitrogen/Creatinine [Mass ratio] 15 ratio Normal 7 - 27 ratio AO ADM SS LABORATORYOrdered By: Rosendo Ozuna on 02-10-2025 Cholesterol [Mass/Vol] 243 mg/dL High 0 - 2 00 mg/dL AO ADM SS Comment on above: Interpretive Data: C holesterol Reference Interval: Less than 200 Desirable 200-239 Borderline high risk 240 and above High risk Cholesterol in HDL [Mass/Vol] 69 mg/dL High 40 - 60 mg/dL AO ADM SS Cholesterol in LDL [Mass/Vol] 159 mg/dL High 0 - 130 mg/dL AO ADM SS Triglyceride [Mass/Vol] 77 mg/dL Normal 0 - 150 mg/dL AO ADM SS Comment on above: Interpretive Data: T riglyceride Reference Interval: Less than 150 Normal 150-199 Borderline high risk 200-499 High risk 500 or higher Very high risk LIPIDon 02-10-2025 Cholesterol [Mass/Vol] 243 mg/dL High 0-200 [facility] Comment on above: Result Comment: Chol esterol Reference Interval: Less than 200 Desirable 200-239 Borderline high risk 240 and above High risk Performed By: #### P SA, A1C, GFR, BMP, LIPID #### [address] [address] Cholesterol in HDL [Mass/Vol] 69 mg/dL High 40-60 [facility] Comment on above: Performed By: #### P SA, A1C, GFR, BMP, LIPID #### [address] [address] Cholesterol in LDL [Mass/Vol] 159 mg/dL High 0-130 [facility] Comment on above: Performed By: #### P SA, A1C, GFR, BMP, LIPID #### [address] [address] Triglyceride [Mass/Vol] 77 mg/dL Normal 0-150 [facility] Comment on above: Result Comment: Trig lyceride Reference Interval: Less than 150 Normal 150-199 Borderline high risk 200-499 High risk 500 or higher Very high risk Performed By: #### P SA, A1C, GFR, BMP, LIPID #### [address] [id number] PSAon 02-10-2025 Prostate Specific Antigen 12.48 ng/mL High 0.00-4.00 [facility] Comment on above: Performed By: #### P SA, A1C, GFR, BMP, LIPID #### [address] [address] .Auto Diffon 01-12-2025 Basophil, Absolute 0.0 10 3/mcL Normal 0.0-0.3 [facility] Comment on above: Performed By: #### G FR, ADIFF, BMP, DIMER, ANEU, TROPHS, MDW, CBC #### [address] [address] Basophils/100 WBC (Bld) 0.8 % Normal 0.0-2.5 [facility] Comment on above: Performed By: #### G FR, ADIFF, BMP, DIMER, ANEU, TROPHS, MDW, CBC #### [address] [address] Eosinophil, Absolute 0.3 10 3/mcL Normal 0.0-0.7 [facility] Comment on above: Performed By: #### G FR, ADIFF, BMP, DIMER, ANEU, ROSALINE WILSON, CBC #### [address] [address] Eosinophils/100 WBC (Bld) 5.5 % Normal 0.0-6.0 [facility] Comment on above: Performed By: #### G FR, ADIFF, BMP, DIMER, ANEU, ROSALINE WILSON, CBC #### [address] [address] Lymphocyte, Absolute 2.5 10 3/mcL Normal 0.9-4.3 [facility] Comment on above: Performed By: #### G FR, ADIFF, BMP, DIMER, ANEUSTEVE MDW, CBC #### [address] [address] Lymphocytes/100 WBC (Bld) 43.1 % High 20.0-40.0 [facility] Comment on above: Performed By: #### G FR, ADIFF, BMP, DIMER, STEVE CARSON MDW, CBC #### [address] [address] Monocyte, Absolute 0.5 10 3/mcL Normal 0.1-1.4 [facility] Comment on above: Performed By: #### G FR, ADIFF, BMP, DIMER, STEVE CARSON MDW, CBC #### [address] [address] Monocytes/100 WBC (Bld) 8.6 % Normal 2.0-13.0 [facility] Comment on above: Performed By: #### G FR, ADIFF, BMP, DIMER, ANEUSTEVE MDW, CBC #### [address] [address] Neutrophils/100 WBC (Bld) 42.0 % Low 50.0-75.0 [facility] Comment on above: Performed By: #### G FR, ADIFF, BMP, DIMER, ANEU, ROSALINE WILSON, CBC #### [address] [address] .GFRon 01-12-2025 Estimated Glomerular Filtration Rate 104 ml/min/1.73sqm Normal [facility] Comment on above: Result Comment: Stages of Chronic Kidney Disease (CKD) Stage Description eGFR(ml/min/1.73 sq.m.) CKD 1 Normal kidney function or >=90 normal kindney function with possible kidney damage (ex. Proteinuria) CKD 2 Kidney damage with mild loss 60-89 of kidney function CKD 3a Mild to moderate loss of kidney 45-59 function CKD 3b Moderate to severe loss of 30-44 of kindey function CKD 4 Severe loss of kidney function 15-29 CKD 5 Kidney failure <15 Note: (go live 2024) the eGFR calculation was updated to the 2020 CKD-EPI creatinine equation without a race factor to calculate the eGFR results. Performed By: #### P SA, A1C, GFR, BMP, LIPID #### [address] [address] .MDWon 01-12-2025 Monocyte Distribution Width 16.34 Normal 0.00-20.00 [facility] Comment on above: Result Comment: For ED adult patients suspected of sepsis, MDW<=20.0 does not rule out sepsis or risk of sepsis Performed By: #### P SA, A1C, GFR, BMP, LIPID #### [address] [address] .NEUABSon 01-12-2025 Neutrophil, Absolute 2.5 10 3/mcL Normal 2.3-8.1 [facility] Comment on above: Performed By: #### G FR, ADIFF, BMP, DIMER, STEVE CARSON MDW, CBC #### [address] [address] BMPon 01-12-2025 BUN/Creatinine Ratio 16 ratio Normal 7-27 [facility] Comment on above: Performed By: #### P SA, A1C, GFR, BMP, LIPID #### [address] [address] Calcium [Mass/Vol] 9.3 mg/dL Normal 8.4-10.2 [facility] Comment on above: Performed By: #### P SA, A1C, GFR, BMP, LIPID #### [address] [address] Chloride [Moles/Vol] 105 mmol/L Normal 98-107 [facility] Comment on above: Performed By: #### P SA, A1C, GFR, BMP, LIPID #### [address] [address] CO2 [Moles/Vol] 30 mmol/L High 22-29 [facility] Comment on above: Performed By: #### P SA, A1C, GFR, BMP, LIPID #### [address] [address] Creatinine [Mass/Vol] 0.76 mg/dL Normal 0.67-1.17 [facility] Comment on above: Performed By: #### P SA, A1C, GFR, BMP, LIPID #### [address] [address] Electrolyte Balance 8.0 mEq/L Normal 4.0-15.0 [facility] Comment on above: Performed By: #### P SA, A1C, GFR, BMP, LIPID #### [address] [address] Glucose [Mass/Vol] 125 mg/dL High 70-105 [facility] Comment on above: Performed By: #### P SA, A1C, GFR, BMP, LIPID #### [address] [address] Potassium [Moles/Vol] 3.6 mmol/L Normal 3.5-5.1 [facility] Comment on above: Performed By: #### P SA, A1C, GFR, BMP, LIPID #### [address] [address] Sodium [Moles/Vol] 143 mmol/L Normal 136-145 [facility] Comment on above: Performed By: #### P SA, A1C, GFR, BMP, LIPID #### [address] [address] Urea nitrogen [Mass/Vol] 12 mg/dL Normal 7-18 [facility] Comment on above: Performed By: #### P SA, A1C, GFR, BMP, LIPID #### [address] [address] CBCon 01-12-2025 Erythrocyte distribution width (RBC) [Ratio] 13.6 % Normal 11.5-15.5 [facility] Comment on above: Performed By: #### G FR, ADIFF, BMP, DIMER, ANEU, TROPHSMDW, CBC #### [address] [address] Hematocrit (Bld) [Volume fraction] 49.6 % Normal 40.0-52.0 [facility] Comment on above: Performed By: #### G FR, ADIFF, BMP, DIMER, ANEU, TODDSROSALINE, CBC #### [place] [address] Hgb 17.2 G/dL Normal 13.0-17.5 [facility] Comment on above: Performed By: #### G FR, ADIFF, BMP, DIMER, ANEU, TODDSROSALINE, CBC #### [address] [address] MCH (RBC) [Entitic mass] 30.3 pg Normal 27.0-33.0 [facility] Comment on above: Performed By: #### G FR, ADIFF, BMP, DIMER, ANEU, TROPHSROSALINE, CBC #### [address] [address] MCHC 34.7 G/dL Normal 32.0-36.0 [facility] Comment on above: Performed By: #### G FR, ADIFF, BMP, DIMER, ANEU, TROPHS, W, CBC #### [address] [address] MCV (RBC) [Entitic vol] 87.5 fL Normal 81.0-100.0 [facility] Comment on above: Performed By: #### G FR, ADIFF, BMP, DIMER, ANEU, TROPHS, MDW, CBC #### [address] [address] Platelet 222 10 3/mcL Normal 150-450 [facility] Comment on above: Performed By: #### G FR, ADIFF, BMP, DIMER, ANEU, TROPHS, MDW, CBC #### [address] [address] Platelet mean volume (Bld) [Entitic vol] 7.9 fL Normal 6.4-10.5 [facility] Comment on above: Performed By: #### G FR, ADIFF, BMP, DIMER, ANEU, TROPHS, MDW, CBC #### [address] [address] RBC 5.67 10 6/mcL Normal 4.50-6.00 [facility] Comment on above: Performed By: #### G FR, ADIFF, BMP, DIMER, ANEU, TROPHS, MDW, CBC #### [address] [address] WBC 5.9 10 3/mcL Normal 4.5-10.8 [facility] Comment on above: Performed By: #### G FR, ADIFF, BMP, DIMER, ANEU, TROPHS, MDW, CBC #### [address] [address] DIMERon 01-12-2025 D-Dimer <200 Normal 0-230 [facility] Comment on above: Result Comment: DDN: Results reported in D-DU ng/mL. Negative for D-dimer. DVT/PE is highly unlikely. Note: False negative results may be seen in patients on anticoagulant therapy. The result of the D-Dimer test should be evaluated in the context of all the clinical and laboratory data available. In those instances where the laboratory result does not agree with the clinical evaluation, additional tests should be performed accordingly. If the D-Dimer result is used to exclude DVT or PE, the recommended cutoff value is less than 230 ng/mL. The D-Dimer result should not be used alone to rule in DVT/PE, but should be used in conjunction with a clinical pretest probability (PTP)assessment model to exclude venous thromboembolism (VTE) in patients suspected of deep venous thrombosis (DVT) and pulmonary embolism (PE). Performed By: #### P SA, A1C, GFR, BMP, LIPID #### [address] [place] [place], [place] [address] LABORATORYOrdered By: SYSTEM SYSTEM on 01-12-2025 Troponin I.cardiac DL <= 0.01 ng/mL [Mass/Vol] 8 ng/L Normal 0 - 76 ng/L AO ADM SS Comment on above: Interpretive Data: H igh Sensitive Troponin I Reference Ranges: Female: 0-51 ng/L Male: 0-76 ng/L Testing performed on [employer] using a homogeneous sandwich chemiluminescent immunoassay based on [employer]out[employer] technology. Basophils (Bld) [#/Vol] 0.0 103/mcL Normal 0.0 - 0.3 10^3/mcL AO Workflow SS Basophils/100 WBC (Bld) 0.8 % Normal 0.0 - 2.5 % AO Workflow SS Calcium [Mass/Vol] 9.3 mg/dL Normal 8.4 - 10. 2 mg/dL AO ADM SS Chloride [Moles/Vol] 105 mmol/L Normal 98 - 10 7 mmol/L AO ADM SS CO2 [Moles/Vol] 30 mmol/L High 22 - 29 mmol/L AO ADM SS Creatinine [Mass/Vol] 0.76 mg/dL Normal 0.67 - 1.17 mg/dL AO ADM SS Electrolyte Balance 8.0 mEq/L Normal 4.0 - 15 .0 mEq/L AO ADM SS Eosinophil, Absolute 0.3 103/mcL Normal 0.0 - 0 .7 10^3/mcL AO Workflow SS Eosinophils/100 WBC (Bld) 5.5 % Normal 0.0 - 6.0 % AO Workflow SS Erythrocyte distribution width (RBC) [Ratio] 13.6 % Normal 11.5 - 15.5 % AO Workflow SS Estimated Glomerular Filtration Rate 104 ml/min/1.73sqm Invalid Interpretation Code AO Chemistry S Comment on above: Interpretive Data: Stages of Chronic Kidney Disease (CKD) Stage Description eGFR(ml/min/1.73 sq.m.) CKD 1 Normal kidney function or >=90 normal kindney function with possible kidney damage (ex. Proteinuria) CKD 2 Kidney damage with mild loss 60-89 of kidney function CKD 3a Mild to moderate loss of kidney 45-59 function CKD 3b Moderate to severe loss of 30-44 of kindey function CKD 4 Severe loss of kidney function 15-29 CKD 5 Kidney failure <15 Note: (go live 2024) the eGFR calculation was updated to the 2020 CKD-EPI creatinine equation without a race factor to calculate the eGFR results. Fibrin D-dimer DDU (PPP) [Mass/Vol] ng/mL D-DU Normal 0 - 230 ng/mL D-DU AO [facility] SS Comment on above: Result Comment: DDN: Results reported in D-DU ng/mL. Negative for D-dimer. DVT/PE is highly unlikely. Note: False negative results may be seen in patients on anticoagulant therapy. Interpretive Data: T he result of the D-Dimer test should be evaluated in the context of all the clinical and laboratory data available. In those instances where the laboratory result does not agree with the clinical evaluation, additional tests should be performed accordingly. If the D-Dimer result is used to exclude DVT or PE, the recommended cutoff value is less than 230 ng/mL. The D-Dimer result should not be used alone to rule in DVT/PE, but should be used in conjunction with a clinical pretest probability (PTP)assessment model to exclude venous thromboembolism (VTE) in patients suspected of deep venous thrombosis (DVT) and pulmonary embolism (PE). Glucose [Mass/Vol] 125 mg/dL High 70 - 105 mg/dL AO ADM SS Hematocrit (Bld) [Volume fraction] 49.6 % Normal 40.0 - 52.0 % AO Workflow SS Hemoglobin (Bld) [Mass/Vol] 17.2 G/dL Normal 13.0 - 17.5 G/dL AO Workflow SS Lymphocytes (Bld) [#/Vol] 2.5 103/mcL Normal 0.9 - 4.3 10^3/mcL AO Workflow SS Lymphocytes/100 WBC (Bld) 43.1 % High 20.0 - 40.0 % AO Workflow SS MCH (RBC) [Entitic mass] 30.3 pg Normal 27.0 - 33.0 pg AO Workflow SS MCHC 34.7 G/dL Normal 32.0 - 36.0 G/dL AO Workflow SS MCV (RBC) [Entitic vol] 87.5 fL Normal 81.0 - 100.0 fL AO Workflow SS Monocyte distribution width Auto (Bld) [Entitic vol] 16.34 1 Normal 0.00 - 20.00 AO Workflow SS Comment on above: Result Comment: For ED adult patients suspected of sepsis, MDW<=20.0 does not rule out sepsis or risk of sepsis Monocytes (Bld) [#/Vol] 0.5 103/mcL Normal 0.1 - 1.4 10^3/mcL AO Workflow SS Monocytes/100 WBC (Bld) 8.6 % Normal 2.0 - 13.0 % AO Workflow SS Natriuretic peptide.B prohormone N-Terminal [Mass/Vol] 14 pg/mL Normal 0 - 125 pg/mL AO ADM SS Comment on above: Interpretive Data: N T-proBNP results of less than 300 pg/mL effectively rules out acute congestive heart failure with 99% negative predictive value. Neutrophils (Bld) [#/Vol] 2.5 103/mcL Normal 2.3 - 8.1 10^3/mcL AO Workflow SS Neutrophils/100 WBC (Bld) 42.0 % Low 50.0 - 75.0 % AO Workflow SS Platelet mean volume (Bld) [Entitic vol] 7.9 fL Normal 6.4 - 10.5 fL AO Workflow SS Platelets (Bld) [#/Vol] 222 103/mcL Normal 150 - 450 10^3/mcL AO Workflow SS Potassium [Moles/Vol] 3.6 mmol/L Normal 3.5 - 5.1 mmol/L AO ADM SS RBC (Bld) [#/Vol] 5.67 106/mcL Normal 4.50 - 6.0 0 10^6/mcL AO Workflow SS Sodium [Moles/Vol] 143 mmol/L Normal 136 - 145 mmol/L AO ADM SS Troponin I.cardiac DL <= 0.01 ng/mL [Mass/Vol] 5 ng/L Normal 0 - 76 ng/L AO ADM SS Comment on above: Interpretive Data: H igh Sensitive Troponin I Reference Ranges: Female: 0-51 ng/L Male: 0-76 ng/L Testing performed on [employer] using a homogeneous sandwich chemiluminescent immunoassay based on [employer] technology. Urea nitrogen [Mass/Vol] 12 mg/dL Normal 7 - 18 mg/dL AO ADM SS Urea nitrogen/Creatinine [Mass ratio] 16 ratio Normal 7 - 27 ratio AO ADM SS WBC (Bld) [#/Vol] 5.9 103/mcL Normal 4.5 - 10.8 10^3/mcL AO Workflow SS PBNPon 01-12-2025 Natriuretic peptide B (Bld) [Mass/Vol] 14 pg/mL Normal 0-125 [facility] Comment on above: Result Comment: NT-p roBNP results of less than 300 pg/mL effectively rules out acute congestive heart failure with 99% negative predictive value. Performed By: #### P SA, A1C, GFR, BMP, LIPID #### [address] [address] TROPHSon 01-12-2025 High Sensitivity Troponin I 8 ng/L Normal 0-76 [facility] Comment on above: Result Comment: High Sensitive Troponin I Reference Ranges: Female: 0-51 ng/L Male: 0-76 ng/L Testing performed on [employer] using a homogeneous sandwich chemiluminescent immunoassay based on [employer]out[employer] technology. Performed By: #### T [facility] #### [place] [address] High Sensitivity Troponin I 5 ng/L Normal 0-76 [facility] Comment on above: Result Comment: High Sensitive Troponin I Reference Ranges: Female: 0-51 ng/L Male: 0-76 ng/L Testing performed on [employer] using a homogeneous sandwich chemiluminescent immunoassay based on [employer]out[employer] technology. Performed By: #### P SA, A1C, GFR, BMP, LIPID #### [address] [address] XR CHEST 1 VIEWon 01-12-2025 XR CHEST 1 VIEW ORIGINAL EXAMINATION: ONE XRAY VIEW OF THE CHEST01/12/2025 5:06 am CHEST ONE VIEW AP/PA COMPARISON: None HISTORY: ORDERING SYSTEM PROVIDED HISTORY: Reason for Exam: chest pain FINDINGS: The cardiomediastinal contours are normal. There is no focal consolidation, pleural effusion, or pneumothorax. No acute osseous abnormality. IMPRESSION: No acute radiographic findings. Interpreted by: Marlo Morin MD Preliminary Report By: Marlo Morin MD Electronically signed By Marlo Morin MD Dictated Date: 01/12/2025 5:10:52 AM Prelim Date: 01/12/2025 5:11:43 AM Sign Date: 01/12/2025 5:11:43 AM Ordering Provider: ADRIANA OQUENDO Normal [facility] .Auto Diffon 07-29-2023 Basophil, Absolute 0.0 10 3/mcL Normal 0.0-0.2 [facility] ([place]) Comment on above: Performed By: #### G FR, ADIFF, LIPID, ANEU, CBC, CMP #### [address] [address] Basophils/100 WBC (Bld) 0.8 % Normal 0.0-2.5 [facility] ([place]) Comment on above: Performed By: #### G FR, ADIFF, LIPID, ANEU, CBC, CMP #### [address] [address] Eosinophil, Absolute 0.2 10 3/mcL Normal 0.0-0.4 [facility] ([place]) Comment on above: Performed By: #### G FR, ADIFF, LIPID, ANEU, CBC, CMP #### [address] [address] Eosinophils/100 WBC (Bld) 3.1 % Normal 0.0-7.0 [facility] ([place]) Comment on above: Performed By: #### G FR, ADIFF, LIPID, ANEU, CBC, CMP #### [address] [address] Lymphocyte, Absolute 2.0 10 3/mcL Normal 0.8-3.9 [facility] ([place]) Comment on above: Performed By: #### G FR, ADIFF, LIPID, ANEU, CBC, CMP #### [address] [address] Lymphocytes/100 WBC (Bld) 39.2 % Normal 10.0-50.0 [facility] ([place]) Comment on above: Performed By: #### G FR, ADIFF, LIPID, ANEU, CBC, CMP #### [address] [address] Monocyte, Absolute 0.5 10 3/mcL Normal 0.2-1.0 [facility] ([place]) Comment on above: Performed By: #### G FR, ADIFF, LIPID, ANEU, CBC, CMP #### [address] [address] Monocytes/100 WBC (Bld) 9.6 % Normal 1.7-13.0 [facility] ([place]) Comment on above: Performed By: #### G FR, ADIFF, LIPID, ANEU, CBC, CMP #### [address] [address] Neutrophils/100 WBC (Bld) 47.3 % Normal 37.0-80.0 [facility] ([place]) Comment on above: Performed By: #### G FR, ADIFF, LIPID, ANEU, CBC, CMP #### [address] [address] .GFRon 07-29-2023 GFR 107 ml/min/1.73sqm Normal [facility] ([place]) Comment on above: Result Comment: GFR Population mean for , Non- Americans Ages 20-29 = 116 mL/min/1.73 sq.m. Ages 30-39 = 107 mL/min/1.73 sq.m. Ages 40-49 = 99 mL/min/1.73 sq.m. Ages 50-59 = 93 mL/min/1.73 sq.m. Ages 60-69 = 85 mL/min/1.73 sq.m. Ages 70+ = 75 mL/min/1.73 sq.m. Chronic Kidney Disease: Less than 60 mL/min/1.73 square meters End Stage Renal Disease: Less than 15 mL/min/1.73 square meters Performed By: #### G FR, ADIFF, LIPID, ANEU, CBC, CMP #### [address] [address] GFR Non- 88 ml/min/1.73sqm Normal [facility] ([place]) Comment on above: Result Comment: GFR Population mean for , Non- Americans Ages 20-29 = 116 mL/min/1.73 sq.m. Ages 30-39 = 107 mL/min/1.73 sq.m. Ages 40-49 = 99 mL/min/1.73 sq.m. Ages 50-59 = 93 mL/min/1.73 sq.m. Ages 60-69 = 85 mL/min/1.73 sq.m. Ages 70+ = 75 mL/min/1.73 sq.m. Chronic Kidney Disease: Less than 60 mL/min/1.73 square meters End Stage Renal Disease: Less than 15 mL/min/1.73 square meters Performed By: #### G FR, ADIFF, LIPID, ANEU, CBC, CMP #### [place] [id number] .NEUABSon 07-29-2023 Neutrophil, Absolute 2.4 10 3/mcL Low 2.9-6.2 [facility] ([place]) Comment on above: Performed By: #### G FR, ADIFF, LIPID, ANEU, CBC, CMP #### [place] [address] CBCon 07-29-2023 Erythrocyte distribution width (RBC) [Ratio] 13.5 % Normal 11.5-14.5 [facility] ([place]) Comment on above: Performed By: #### G FR, ADIFF, LIPID, ANEU, CBC, CMP #### [place] [address] Hematocrit (Bld) [Volume fraction] 47.6 % Normal 42.0-52.0 [facility] ([place]) Comment on above: Performed By: #### G FR, ADIFF, LIPID, ANEU, CBC, CMP #### [place] [address] Hgb 16.2 G/dL Normal 14.0-18.0 [facility] ([place]) Comment on above: Performed By: #### G FR, ADIFF, LIPID, ANEU, CBC, CMP #### [place] [address] MCH (RBC) [Entitic mass] 30.1 pg Normal 27.0-31.2 [facility] ([place]) Comment on above: Performed By: #### G FR, ADIFF, LIPID, ANEU, CBC, CMP #### [place] [id number] MCHC 34.0 G/dL Normal 31.8-35.4 [facility] ([place]) Comment on above: Performed By: #### G FR, ADIFF, LIPID, ANEU, CBC, CMP #### [address] [address] MCV (RBC) [Entitic vol] 88.7 fL Normal 80.0-94.0 A [facility] ([place]) Comment on above: Performed By: #### G FR, ADIFF, LIPID, ANEU, CBC, CMP #### [address] [address] Platelet 218 10 3/mcL Normal 130-400 [facility] ([place]) Comment on above: Performed By: #### G FR, ADIFF, LIPID, ANEU, CBC, CMP #### [address] [address] Platelet mean volume (Bld) [Entitic vol] 7.6 fL Normal 7.4-10.4 [facility] ([place]) Comment on above: Performed By: #### G FR, ADIFF, LIPID, ANEU, CBC, CMP #### [address] [address] RBC 5.37 10 6/mcL Normal 4.04-6.13 [facility] ([place]) Comment on above: Performed By: #### G FR, ADIFF, LIPID, ANEU, CBC, CMP #### [address] [address] WBC 5.0 10 3/mcL Normal 4.6-10.8 [facility] ([place]) Comment on above: Performed By: #### G FR, ADIFF, LIPID, ANEU, CBC, CMP #### [address] [address] CMPon 07-29-2023 Albumin Level 3.0 G/dL Low 3.5-5.0 [facility] ([place]) Comment on above: Performed By: #### G FR, ADIFF, LIPID, ANEU, CBC, CMP #### [address] [address] Albumin/Globulin [Mass ratio] 0.8 {ratio} Low 1.1-2.5 [facility] ([place]) Comment on above: Performed By: #### G FR, ADIFF, LIPID, ANEU, CBC, CMP #### [address] [address] ALP [Catalytic activity/Vol] 71 U/L Normal 40-135 [facility] ([place] Comment on above: Performed By: #### G FR, ADIFF, LIPID, ANEU, CBC, CMP #### [address] [address] ALT [Catalytic activity/Vol] 37 U/L Normal 16-63 [facility] ([place] Comment on above: Performed By: #### G FR, ADIFF, LIPID, ANEU, CBC, CMP #### [address] [address] AST [Catalytic activity/Vol] 26 U/L Normal 10-40 [facility] ([place]) Comment on above: Performed By: #### G FR, ADIFF, LIPID, ANEU, CBC, CMP #### [address] [address] Bili Total 0.5 mg/dL Normal 0.2-1.0 [facility] ([place]) Comment on above: Result Comment: Use of this assay is not recommended for patients undergoing treatment with eltrombopag due to the potential for falsely elevated results. Performed By: #### G FR, ADIFF, LIPID, ANEU, CBC, CMP #### [address] [address] BUN/Creatinine Ratio 12 ratio Normal 7-27 [facility] ([place]) Comment on above: Performed By: #### G FR, ADIFF, LIPID, ANEU, CBC, CMP #### [address] [address] Calcium [Mass/Vol] 8.8 mg/dL Normal 8.4-10.2 [facility] ([place]) Comment on above: Performed By: #### G FR, ADIFF, LIPID, ANEU, CBC, CMP #### [address] [address] Chloride [Moles/Vol] 105 mmol/L Normal 98-107 [facility] ([place]) Comment on above: Performed By: #### G FR, ADIFF, LIPID, ANEU, CBC, CMP #### [address] [address] CO2 [Moles/Vol] 30 mmol/L High 22-29 [facility] ([place]) Comment on above: Performed By: #### G FR, ADIFF, LIPID, ANEU, CBC, CMP #### [address] [address] Creatinine [Mass/Vol] 0.89 mg/dL Normal 0.70-1.30 [facility] ([place]) Comment on above: Performed By: #### G FR, ADIFF, LIPID, ANEU, CBC, CMP #### [address] [address] Electrolyte Balance 6.0 mEq/L Normal 4.0-15.0 [facility] ([place]) Comment on above: Performed By: #### G FR, ADIFF, LIPID, ANEU, CBC, CMP #### [address] [address] Globulin 3.8 G/dL Normal [facility] ([place]) Comment on above: Performed By: #### G FR, ADIFF, LIPID, ANEU, CBC, CMP #### [address] [address] Glucose [Mass/Vol] 104 mg/dL Normal 70-105 [facility] ([place]) Comment on above: Performed By: #### G FR, ADIFF, LIPID, ANEU, CBC, CMP #### [address] [address] Potassium [Moles/Vol] 4.5 mmol/L Normal 3.5-5.1 [facility] ([place]) Comment on above: Performed By: #### G FR, ADIFF, LIPID, ANEU, CBC, CMP #### [address] [address] Sodium [Moles/Vol] 141 mmol/L Normal 136-145 [facility] ([place]) Comment on above: Performed By: #### G FR, ADIFF, LIPID, ANEU, CBC, CMP #### [place] [address] [place], [place] [address] Total Protein 6.8 G/dL Normal 6.4-8.2 [facility] ([place]) Comment on above: Performed By: #### G FR, ADIFF, LIPID, ANEU, CBC, CMP #### [place] [address] [place], [place] [address] Urea nitrogen [Mass/Vol] 11 mg/dL Normal 7-18 [facility] ([place]) Comment on above: Performed By: #### G FR, ADIFF, LIPID, ANEU, CBC, CMP #### [place] [address] [place], [place] [address] LABORATORYOrdered By: SYSTEM SYSTEM on 07-29-2023 Albumin BCP dye [Mass/Vol] 3.0 G/dL Low 3.5 - 5.0 G/dL AO ADM SS Albumin/Globulin [Mass ratio] 0.8 {ratio} Low 1.1 - 2.5 ratio AO ADM SS ALP [Catalytic activity/Vol] 71 U/L Normal 40 - 135 U/L AO ADM SS ALT With P-5'-P [Catalytic activity/Vol] 37 U/L Normal 16 - 63 U/L AO ADM SS AST With P-5'-P [Catalytic activity/Vol] 26 U/L Normal 10 - 40 U/L AO ADM SS Basophil, Absolute 0.0 103/mcL Normal 0.0 - 0.2 10^3/mcL AO Workflow SS Basophils/100 WBC (Bld) 0.8 % Normal 0.0 - 2.5 % AO Workflow SS Bilirubin [Mass/Vol] 0.5 mg/dL Normal 0.2 - 1 .0 mg/dL AO ADM SS Comment on above: Interpretive Data: U se of this assay is not recommended for patients undergoing treatment with eltrombopag due to the potential for falsely elevated results. Calcium [Mass/Vol] 8.8 mg/dL Normal 8.4 - 10. 2 mg/dL AO ADM SS Chloride [Moles/Vol] 105 mmol/L Normal 98 - 10 7 mmol/L AO ADM SS CO2 [Moles/Vol] 30 mmol/L High 22 - 29 mmol/L AO ADM SS Creatinine [Mass/Vol] 0.89 mg/dL Normal 0.70 - 1.30 mg/dL AO ADM SS Electrolyte Balance 6.0 mEq/L Normal 4.0 - 15 .0 mEq/L AO ADM SS Eosinophil, Absolute 0.2 103/mcL Normal 0.0 - 0 .4 10^3/mcL AO Workflow SS Eosinophils/100 WBC (Bld) 3.1 % Normal 0.0 - 7.0 % AO Workflow SS Erythrocyte distribution width (RBC) [Ratio] 13.5 % Normal 11.5 - 14.5 % AO Workflow SS GFR/1.73 sq M.predicted among blacks MDRD (S/P/Bld) [Vol rate/Area] 107 ml/min/1.73sqm Invalid Interpretation Code AO Chemistry S Comment on above: Interpretive Data: GFR Population mean for , Non- Americans Ages 20-29 = 116 mL/min/1.73 sq.m. Ages 30-39 = 107 mL/min/1.73 sq.m. Ages 40-49 = 99 mL/min/1.73 sq.m. Ages 50-59 = 93 mL/min/1.73 sq.m. Ages 60-69 = 85 mL/min/1.73 sq.m. Ages 70+ = 75 mL/min/1.73 sq.m. Chronic Kidney Disease: Less than 60 mL/min/1.73 square meters End Stage Renal Disease: Less than 15 mL/min/1.73 square meters GFR/1.73 sq M.predicted among non-blacks MDRD (S/P/Bld) [Vol rate/Area] 88 ml/min/1.73sqm Invalid Interpretation Code AO Chemistry S Comment on above: Interpretive Data: GFR Population mean for , Non- Americans Ages 20-29 = 116 mL/min/1.73 sq.m. Ages 30-39 = 107 mL/min/1.73 sq.m. Ages 40-49 = 99 mL/min/1.73 sq.m. Ages 50-59 = 93 mL/min/1.73 sq.m. Ages 60-69 = 85 mL/min/1.73 sq.m. Ages 70+ = 75 mL/min/1.73 sq.m. Chronic Kidney Disease: Less than 60 mL/min/1.73 square meters End Stage Renal Disease: Less than 15 mL/min/1.73 square meters Globulin 3.8 G/dL Invalid Interpretation Code AO ADM SS Glucose [Mass/Vol] 104 mg/dL Normal 70 - 105 mg/dL AO ADM SS Hematocrit (Bld) [Volume fraction] 47.6 % Normal 42.0 - 52.0 % AO Workflow SS Hemoglobin (Bld) [Mass/Vol] 16.2 G/dL Normal 14.0 - 18.0 G/dL AO Workflow SS Lymphocyte, Absolute 2.0 103/mcL Normal 0.8 - 3 .9 10^3/mcL AO Workflow SS Lymphocytes/100 WBC (Bld) 39.2 % Normal 10.0 - 50.0 % AO Workflow SS MCH (RBC) [Entitic mass] 30.1 pg Normal 27.0 - 31.2 pg AO Workflow SS MCHC 34.0 G/dL Normal 31.8 - 35.4 G/dL AO Workflow SS MCV (RBC) [Entitic vol] 88.7 fL Normal 80.0 - 94.0 fL AO Workflow SS Monocyte, Absolute 0.5 103/mcL Normal 0.2 - 1.0 10^3/mcL AO Workflow SS Monocytes/100 WBC (Bld) 9.6 % Normal 1.7 - 13.0 % AO Workflow SS Neutrophil, Absolute 2.4 103/mcL Low 2.9 - 6 .2 10^3/mcL AO Workflow SS Neutrophils/100 WBC (Bld) 47.3 % Normal 37.0 - 80.0 % AO Workflow SS Platelet mean volume (Bld) [Entitic vol] 7.6 fL Normal 7.4 - 10.4 fL AO Workflow SS Platelets (Bld) [#/Vol] 218 103/mcL Normal 130 - 400 10^3/mcL AO Workflow SS Potassium [Moles/Vol] 4.5 mmol/L Normal 3.5 - 5.1 mmol/L AO ADM SS Protein [Mass/Vol] 6.8 G/dL Normal 6.4 - 8.2 G/dL AO ADM SS RBC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 [address] [place] [id number]. All rights reserved. This information is not intended as a substitute for professional medical care. Always follow your healthcare professional's instructions. Follow Up Care 01/12/2025 04:29:51 With:Go to emergency room if symptoms worsen Address:Unknown When:2-4 days With:LONA ZELAYA APRN-[employer] Address: [address] [place] [phone] When:2-4 days [facility] 01-12-2025 Note Exam Date Time Procedure Performing Provider Status 01/12/25 5:06 AM XR Chest 1 View MARLO MORIN MD; Auth (Verified) [id number] ORIGINAL EXAMINATION: ONE XRAY VIEW OF THE CHEST01/12/2025 5:06 am CHEST ONE VIEW AP/PA COMPARISON: None HISTORY: ORDERING SYSTEM PROVIDED HISTORY: Reason for Exam: chest pain FINDINGS: The cardiomediastinal contours are normal. There is no focal consolidation, pleural effusion, or pneumothorax. No acute osseous abnormality. IMPRESSION: No acute radiographic findings. Interpreted by: Marlo Morin MD Preliminary Report By: Marlo Morin MD Electronically signed By Marlo Morin MD Dictated Date: 01/12/2025 5:10:52 AM Prelim Date: 01/12/2025 5:11:43 AM Sign Date: 01/12/2025 5:11:43 AM Ordering Provider: ADRIANA OQUENDO [facility]06-13-2025 Note* Exam Date Time Procedure Performing Provider Status 01/12/25 4:37 AM EKG [ED AOH] - ADRIANA URBAN DO ; Auth (Verified) ECG Final Report Sinus rhythm RSR' in V1 or V2, right VCD or RVH Electronic Signature: ADRIANA OQUENDO DO 01/12/2025 04:44:02 [facility]06-02-2025 Evaluation + Plan note Future Appointments Appointment Date:01/17/2025 11:30:00 AM Scheduled Provider: Location:[facility] Appointment Type:HL Plain Stress Test Appointment Date:01/26/2025 01:00:00 PM Scheduled Provider:LONA ZELAYA Location:[facility] Appointment Type:PC OV ED Follow Up Future Scheduled Tests Laboratory* Prostate Specific Antigen 12/22/23 [facility] Evaluation + Plan note Future Appointments Appointment Date:06/25/2021 04:15:00 PM Scheduled Provider: Location:[facility] Appointment Type:COVID AMB VACCINE Appointment Date:07/02/2021 04:30:00 PM Scheduled Provider:RAY DORSEY MD Location:[facility] Appointment Type:PC Wellness Annual Future Scheduled Tests Laboratory* Prostate Specific Antigen 10/26/20 * Thyroid Stimulating Hormone 05/05/21 * Thyroid Stimulating Hormone 10/26/20 * Complete Blood Count 05/05/21 * Complete Blood Count 10/26/20 * Lipid Profile 05/05/21 * Lipid Profile 10/26/20 * Complete Metabolic Panel 05/05/21 * Complete Metabolic Panel 10/26/20 [facility] Evaluation + Plan note Future Scheduled Tests Laboratory* Prostate Specific Antigen 12/22/23 [facility] Evaluation + Plan note Future Appointments Appointment Date:01/26/2025 01:00:00 PM Scheduled Provider:LONA ZELAYA Location:[facility] Appointment Type:PC OV ED Follow Up Future Scheduled Tests Laboratory* Prostate Specific Antigen 12/22/23 [facility] Evaluation noteNo assessment information available [facility] Work Phone: Hospital course Narrative No data available for this section [facility] Hospital Discharge instructions No data available for this section [facility] Progress note No data available for this section [facility] Reason for referral (narrative)No reason for referral [facility] Work Phone: Summary Purpose Family History No Family History Records Found Advance Directives No Advanced Directives Records FoundNo Advanced Directives Records FoundNo Advanced Directives Records FoundNo Advanced Directives Records Found Additional Source Comments Patient Care team informatio n (unrecognized section and content) Team Status: Active Member Role/Relationship Status Dates Lona Zelaya NP, ACCREDITED FARM MANAGER-C Primary Care Provider Activ e Team Status: Inactive Member Role/Relationship Status Dates Lona Zelaya NP, ACCREDITED FARM MANAGER-C Primary Care Provider Activ e Start: March 06, 2025 End: March 06, 2025 Kiara Plymouth Attending Provider Active Start : March 06, 2025 End: March 06, 2025 Kiara Plymouth Referring Provider Active Start : March 06, 2025 End: March 06, 2025 Team Status: Inactive Member Role/Relationship Status Dates Lona Zelaya NP, ACCREDITED FARM MANAGER-C Primary Care Provider Activ e Start: March 15, 2025 End: March 15, 2025 Dr. Romaine Davis MD Attending Provider Active Start: March 15, 2025 End: March 15, 2025 Dr. Romaine Davis MD Referring Provider Active Start: March 15, 2025 End: March 15, 2025 (unrecognized sect ion and content) No Status Records FoundNo Status Records FoundNo Status Records FoundNo Status Records Found INFORMATION SOURCE (unrecogn ized section and content) DATE CREATED AUTHOR 07/30/2023 [facility] ([place]) DATE CREATED AUTHOR AUTHOR'S ORGANIZ ATION 01/27/2025 [facility] DATE CREATED AUTHOR AUTHOR'S ORGANIZ ATION 02/14/2025 [facility] DATE CREATED AUTHOR AUTHOR'S ORGANIZ ATION 04/26/2025 [facility] Goals (unrecognized section and content) Goals may be documented in a n alternate section FOR RECORDS PERTAINING TO PATIENTS WHO ARE OR HAVE BEEN ENROLLED IN A CHEMICAL DEPENDENCY/SUBSTANCEABUSE PROGRAM, SOME INFORMATION MAY BE OMITTED. This clinical summary was aggregated from multiple sources. Caution should be exercised in using it in the provision of clinical care. This summary normalizes information from multiple sources, and as a consequence, information in this document may materially change the coding, format and clinical context of patient data. In addition, data may be omitted in some cases. CLINICAL DECISIONS SHOULD BE BASED ON THE PRIMARY CLINICAL RECORDS. [facility] [employer] [facility]. provides no warranty or guarantee of the accuracy or completeness of information in this document.
--- NOTE | 2025-04-27 14:19 | PCM.OPRPT ---
Operative Report (Standard) Operative Information Date of Procedure: 04/27/25 Pre-Operative Diagnosis: Prostate cancer Post-Operative Diagnosis: The same Surgery/Procedure Performed: Laparoscopic robotic assisted radical prostatectomy, complete pelvic lymph node dissection yarn finisher: No Type of Anesthesia: General RN Documented Start/Stop Times: Operation Date: 04/27/25 10:30 Case Time Into Pre-Op 04/27/25 08:29 Out of Pre-Op 04/27/25 10:19 Anesthesia Start 04/27/25 10:28 Into Room 04/27/25 10:28 Procedure Start 04/27/25 10:58 Procedure Start Time: 10:58 Procedure Stop Time: 14:20 Select all DRAINS/GRAFTS/IMPLANTS that apply: Drains Drain details: 18 [place] tip catheter Estimated Blood Loss: 250 cc Specimen collected: Yes Description of specimen(s) removed: Prostate tissue and lymph nodes bilateral Description of surgery: Patient presented to the hospital for treatment of his prostate cancer with radical prostatectomy. In the preoperative setting we discussed the options of management for his prostate cancer including active surveillance, radiation treatments, radioactive seeds, and radical robotic prostatectomy. We discussed the side effects of surgery including the potential to lose erections. We discussed the potential to have bladder control problems with stress incontinence which can be temporary or permanent. We discussed the risk of the surgery including the risk of general anesthetic, risk of bleeding, risk of infection, and risk of formation of hernia either incisional hernia or inguinal hernia. After long discussion with the patient the preoperative setting and also reviewed this in the preop area patient signed the consent form and we proceeded with a radical prostatectomy. Patient was taken back to the operating room he was identified, time out procedure was performed and he was placed supine on the table he underwent general anesthesia with intubation. The abdomen was shaved prepped and draped in usual sterile fashion as well as the penis and testicles. A 16 Moroccan catheter was placed into the bladder with clear return of urine. I then made an incision in the umbilicus and dissected down to the fascia advance a Veress needle into the peritoneal cavity and insufflated the peritoneal cavity with CO2 gas. I then placed a 12 mm trocar above the umbilicus. I then visualized the placement of the rest of the trochars, I placed a right arm robotic trocar, and air seal trocar, a suction port 5 mm trocar. And on the left side I placed 2 robotic arms. Once all the trochars were in placed the patient was put in steep Trendelenburg. And the robot was docked the arms were docked and then I placed the 0 degree camera through the robotic arm and also used a 30 degree camera during certain parts of the case. I used scissors in the right arm, prograsp in the third arm, and a bipolar in the second arm. Initial dissection was to free the sigmoid colon off the lateral wall this was done by meticulously dissecting off the peritoneum and the sigmoid colon off the left lateral wall. This then allowed the prograsp to retract the sigmoid colon out of the pelvis. I then went below the bladder and identified the vas deferens incised the peritoneum over the vas deferens and traced the vas deferens below the bladder to the prostate and identified the right and left vasa deferens. Below behind the vas deferens then the seminal vesicles were identified. I then dissected the seminal vesicle free using pinpoint electrocautery and then we identified the other seminal vesicle and then dissected this using pinpoint electrocautery I then elevated the vas deferens and several vesicles off the prostate and was able to sweep the Denonvilliers' fascia off the prostate posteriorly all the way up to the apex of the prostate. Working laterally I made sure I went as lateral as possible to sweep the Denonilliers' fascia off the posterior aspect of the prostate and worked my way back, I then transected the vas deferens and the left and right side the seminal vesicles were then dissected free. And then I pulled out of the pelvis. At this point the bladder was dropped creating the space of Retzius with the bladder on traction with the fourth arm. Using electrocautery I dissected in the anterior peritoneal fascia and then created the space of Retzius dissecting towards the prostate. The a total bilateral pelvic lymph node dissection was then performed. The right pelvic lymph nodes the nodes that were taken on the right side extended from the right iliac artery lateral pelvic sidewall up to the junction of the artery and the lymph nodes and down to the obturator nerve and then also below the operator supply nerve all the lymph nodes were removed during to remove those lymph nodes we used clips and electrocautery to control small blood vessels and also the control lymphatic. I then went to the left side and again did an extensive lymph node dissection starting of the left iliac artery extending the left iliac vein on the lateral sidewall down to the obturator nerve and the left side beyond the operator supply nerve down further behind it cleaning out all the lymphatic tissue all this tissue was sent off as a specimen we use clips and electrocautery during the dissection. At the end we cleaned out all the lymphatic tissue on the right pelvic wall and all the lymphatic tissue in the left pelvic wall. The prostate was then cleaned of the fat over the prostate and the fourth arm was used to retract the bladder and place traction. I then identified the endopelvic fascia that was overlying the prostate on the right side I incised endopelvic fascia and wwept the levator muscles off the prostate all the way to the apex on the right side, I then worked my way anterior to the prostate then transected to the puboprostatic ligament and the underlying dorsal vein complex was not injured. I then went to the other side and identified the endopelvic fascia in the left side incised in a fashion the left side and swept the levator muscles off the prostate on the left side all the way up to the apex the puboprostatic ligament on the left side was then dissected and transected I then freed up the fascia overlying the dorsal vein complex. I then used the prograsp to encircled the dorsal vein complex with the prograsp and then switched over to the right and left needle bulk driver and suture ligated the dorsal vein complex above the prograsp. The prograsp was then placed back in the bladder and put back on traction I then identified the junction between the bladder and the prostate and dissected down between the bladder and the prostate untilI came across the catheter we then dissected posteriorly to the bladder and prostate to free the prostate and the bladder off each other and the muscles between the bladder and the prostate was then cauterized to free up the bladder. I then went on top of the prostate and identified the endopelvic fascia on top of the prostate this was incised all the way to the apex and then we swept the endopelvic fascia off the prostate laterally and then identified the plane between endopelvic fascia and the prosthetic pseudocapsule and swept the fascia laterally until reaching the course of the neurovascular bundles and then released the neurovascular bundles off the prostate laterally all the way back in a retrograde fashion back to the junction of the pedicles then the prostate was placed on traction with the fourth arm pulling the prostate laterally identified the pedicle to the prostate between the seminal vesicles and the and the neurovascular bundle and this was taken using sequential small hemolocks. After the pedicle was taken the I then dissected underneath the prostate sweeping the neurovascular bundle off the prostate we able to follow the nice smooth plane between the neurovascular bundle and the pseudocapsule all the way to the apex once this was identified we swept this up all the way up to the apex and there was perfect nerve sparing on the right side. Then went to the left side the prostate identified the endopelvic fascia over the left side of the prostate I incised the endopelvic fascia all the way to the apex and then swept this off laterally I then released the neurovascular bundles on the left side of the prostate sweeping him off the prostate laterally I then elevated the prostate up up with the prostate and traction identified the pedicle to the prostate on the left side and then the pedicles taken with sequential Hem-o-hesham clips I then was able to dissected the neurovascular bundle off the left posterior aspect the prostate this was a perfect dissection all the way up on the left side following the pseudocapsule all the way up the left side until we reached the apex of the prostate. After the both the neurovascular bundles has been swept off the posterior to the prostate I then went above and transected the dorsal vein complex there was minimal to no bleeding but then dissected down to the urethra and circumfencial dissected around the urethra I then switched the right and left arm with the needle drivers and I suture-ligated the dorsal vein complex again just to ensure that there was no bleeding from the dorsal vein complex. I then transected through the urethra with scissors and the prostate was then freed and released off the prostate bed and put an Endo Catch bag. At this point the bladder neck was reconstructed and then an anastomosis was performed between the prostate and the bladder with a 3 oh V-Loc stitch in a running fashion starting from the bladder neck at the 6 o'clock position working to the 12 o'clock position with continuous stitches to complete a perfect anastomosis between the bladder and the prostate. I then placed a new catheter into the bladder, an 18 [place] tip catheter flushed the bladder and there was no leakage from the anastomosis I put 10 cc in the balloon and pulled it up pulled back gently. I then ensured that there was no bleeding from the dorsal vein complex no bleeding from the neurovascular bundles FloSeal was placed as necessary once hemostasis was ensured and adequate then I placed the bladder back in position in the pelvis the prostate was exchanged to the camera port I closed the air seal port with a 10 12 Berny Hamilton stitch. And the extracted the prostate through the umbilicus. The robot was undocked all the ports were removed under direct visualization then closed the extraction site with 0 Vicryl with a CT1 needle once the extraction site was closed. I then closed all the incision with subcuticular stitches with 4-0 Monocryl and then bandages were placed on the incisions catheter was flushed to make sure it was draining well there was no clots and it was crystal clear patient's anesthetic was reversed he was extubated and taken back to the PACU in stable condition all the needles and sponges and instruments were accounted for. Blood loss was minimal and the drain was a 18 [place] catheter. No other surgical drain was left. I was present during the entire case. The role of the oracle financial application developer AUTOMATION CONTROLS ENGINEER, assisted with myself during the entire procedure, the AUTOMATION CONTROLS ENGINEER assisted by passing instruments through the air seal port, passing suture, needles, sponges during the surgery. The RFA also assisted with providing some suction using the suction irrigation and some irrigation during the surgery. Also the surgical services assistant provided some traction minorly during the dissection of the prostate and the seminal vesicles. The RFA also helped me extract the prostate at the end of the case and helped close the fascia, and the surgical services assistant also helped close the skin incisions with subcuticular stitches. The surgical services assistant was monitored closely and under my direct supervision the entire case. Surgical Findings: Bilateral lymph nodes cleared out and prostate removed entirely Complications Complications: No Admit VTE Documentation VTE Present on Admission: No VTE Mechan Device Prophylaxis: SCD's VTE Pharm Prophylaxis ordered?: No
--- NOTE | 2025-04-27 14:33 | PCM.POST.ANE ---
Anesthesia: Postop Eval I Current Vital Signs Temperature: 97.2 F Pulse Rate: 84 Blood Pressure: 121/70 Respiratory Rate: 16 Pulse Ox: 94 Assessment Airway patent: Yes Spontaneous unlabored respirations: Yes nausea: No Vomiting: No Anesthesia Complication: No Fluid Hydration Crystalloid volume administer (ml): 1,300 Total IV fluid infused: 1,300 Progress Note Anesthesia document: Postop Eval 1 completed: Yes
--- NOTE | 2025-04-27 15:33 | SUR.PHASEI ---
AT APPROXIMATELY 15:20, ONEILL CATHETER IRRIGATED WITH 50CC STERILE NS. ONEILL CATHETER IRRIGATED EASILY AND RETURNED 50 CC LIQUID. NO CLOTS NOTED.
--- NOTE | 2025-04-27 15:44 | POSTOPAN2_ITS ---
Anesthesia Postop Eval I Sum Postop Eval Completion status Anesthesia document: Postop Eval 1 completed: Yes Anesthesia Postop Eval I Summary Anesthesia Postop Eval I Summary: Anesthesia Postop Eval I: Assessment Summary Airway patent Yes 04/27/25 14:33 [email or web address] Spontaneous unlabored Yes 04/27/25 14:33 [email or web address] [email or web address] respirations Mental status nausea No 04/27/25 14:33 [email or web address] Vomiting No 04/27/25 14:33 [email or web address] Anesthesia Postop Eval I: Fluid Summary Crystalloid volume administer 1,300 04/27/25 14:33 [email or web address] (ml) Colloids volume administered ( ml) Blood Product volume administered (ml) Total IV fluid infused 1,300 04/27/25 14:33 [email or web address] Anesthesia Postop Eval I: Summary Notes Anesthesia Complication No 04/27/25 14:33 [email or web address] Anesthesia Complication Comment: Post-operative progress note Anesthesia: Postop Eval II Evaluation Mental status: Awake and Calm Pain Level: 1 nausea: No Vomiting: No Complications Anesthesia Complication: No
--- NOTE | 2025-04-27 15:44 | PCM.POSTANE2 ---
Anesthesia Postop Eval I Sum Postop Eval Completion status Anesthesia document: Postop Eval 1 completed: Yes Anesthesia Postop Eval I Summary Anesthesia Postop Eval I Summary: Anesthesia Postop Eval I: Assessment Summary Airway patent Yes 04/27/25 14:33 [email or web address] Spontaneous unlabored Yes 04/27/25 14:33 INTERIOR [email or web address] [email or web address] respirations Mental status nausea No 04/27/25 14:33 INTERIOR [email or web address] Vomiting No 04/27/25 14:33 INTERIOR [email or web address] Anesthesia Postop Eval I: Fluid Summary Crystalloid volume administer 1,300 04/27/25 14:33 [email or web address] (ml) Colloids volume administered ( ml) Blood Product volume administered (ml) Total IV fluid infused 1,300 04/27/25 14:33 INTERIOR [email or web address] Anesthesia Postop Eval I: Summary Notes Anesthesia Complication No 04/27/25 14:33 INTERIOR [email or web address] Anesthesia Complication Comment: Post-operative progress note Anesthesia: Postop Eval II Evaluation Mental status: Awake and Calm Pain Level: 1 nausea: No Vomiting: No Complications Anesthesia Complication: No
[2025-04-27] MEDS: 0.9% Normal Saline (1000mL) 1,000 ML 125 ML IV (16:24)
[2025-04-28 00:04] VITALS: BP 128/80; PULSE 88; RESP 16; TEMP 37.2; O2SAT 97
[2025-04-28] MEDS: 0.9% Normal Saline (1000mL) 1,000 ML 125 ML IV (01:38)
[2025-04-28 02:17] VITALS: BP 127/75; PULSE 87; RESP 16; TEMP 37.2; O2SAT 97
[2025-04-28 04:36] VITALS: BP 118/83; PULSE 87; RESP 15; TEMP 37.1; O2SAT 96
[2025-04-28] MEDS: 0.9% Saline Lock 10 ML Syringe IV (05:56)
[2025-04-28 08:25] VITALS: BP 129/89; PULSE 80; RESP 16; TEMP 36.7; O2SAT 99
--- NOTE | 2025-04-28 08:47 | DS.PCM_ITS ---
Providers Date of Admission: 04/27/25 Primary Care Physician: Lona Delacruz, FIRE ENGINEER-C Reason For Visit: ROBOTIC RADICAL PROSTATECTOMY AND LYMPH NODES Medications at Discharge Home Medications lisinopril 10 mg tablet 10 mg PO DAILY HTN 04/13/25 multivit,Ca,min-iron 8 mg-folic acid 200 mcg-lycopene 600 mcg tablet (Centrum Men) 1 tab PO DAILY SUPPLEMENT 04/13/25 omega 3 350 mg-dha 235 mg-epa 90 mg-fish oil 597 mg capsule,delay rel (Walker-3) 1 cap PO DAILY SUPPLEMENT 04/13/25 ciprofloxacin HCl 500 mg tablet (Cipro) 500 mg PO BID #20 tabs 04/27/25 docusate sodium 100 mg capsule (Colace) 100 mg PO BID #20 caps 04/27/25 oxycodone 5 mg tablet 5 mg PO Q6H PRN pain 7 days #14 tabs 04/27/25 Hospital Course Operations - (robotic radical prostatectomy) Weight / BMI Weight Weight: 95.5 kg Body Mass Index (BMI) 29.3 ABG / Lab / Microbiology Data 04/27/25 08:55 Laboratory: Laboratory Results - last 24 hr 04/27/25 08:55: WBC 4.0 L, RBC 5.39, Hgb 16.9 H, Hct 47.1, MCV 87.4, MCH 31.4, MCHC 35.9, RDW Std Deviation 40.0, RDW Coeff of Bianca 12.5, Plt Count 205, MPV 9.9, Immature Gran % (Auto) 0.200, Neut % (Auto) 56.3, Lymph % (Auto) 31.8, [place] % (Auto) 7.2, Eos % (Auto) 3.5, Baso % (Auto) 1.0, Absolute Neuts (auto) 2.3, Absolute Lymphs (auto) 1.28, Nucleated RBC % 0, Blood Type A POSITIVE, Antibody Screen NEGATIVE D/C Instructions Return to work on: 06/01/25 Call your doctor if your incision/area has: Continuous Slow Oozing, Sudden Increased Bleeding and Increased Pain/ Swelling Call your doctor if you observe: Fever of 101 or Higher, Inability to have a bowel movement and Uncontrolled pain Suture Line Care: Avoid Pulling/Pushing and Avoid Pinching/Bending Cleanse incision/area with: Soap & Water Catheter: [place] to leg bag and [place] to large bag Drain: [place] DC O2, CPAP, BIPAP Needs Home O2 Discharge instructions: No Please Follow Up With: Romaine Davis MD When: Call [phone] for an appointment Meaningful Use Info Meaningful Use Meaningful Use Diagnoses (Choose all that apply): None applicable Discharge Plan Admission Admit Date/Time: 04/27/25 10:47 Primary Reason for Your Visit: radical prostatectomy Attending Provider: Romaine Davis Primary Care Provider: Lona Delacruz NP Discharge Orders/Prescriptions Prescriptions: New ciprofloxacin HCl [Cipro] 500 mg tablet 500 mg PO BID Qty: 20 0RF docusate sodium [Colace] 100 mg capsule 100 mg PO BID Qty: 20 0RF oxycodone 5 mg tablet 5 mg PO Q6H PRN (Reason: pain) 7 Days Qty: 14 0RF Continued lisinopril 10 mg tablet 10 mg PO DAILY Walker-3 350 mg-235 mg- 90 mg-597 mg capsule,delayed release(DR/EC) 1 cap PO DAILY Centrum Men 8 mg iron- 200 mcg-600 mcg tablet 1 tab PO DAILY Referrals / Follow Up: Romaine Davis MD [Med Staff - Active Staff, Urology] Lona Delacruz NP, FIRE ENGINEER-C [Primary Care Provider, Family Practice] Disposition Discharge Orders: Discharge Patient (Routine); Ordered 04/28/25 Ordered By: Dr. Romaine Davis
--- NOTE | 2025-04-28 11:07 | CASEMGMT ---
CARISSA GUILLEN note: Pt to discharge home today w/ F/C. CARISSA GUILLEN to room. Pt resting in bed. Introduced self and role. Pt states his is on the way in to take him home and that nursing staff plans to do F/C education w/him and his together. Other than the need for F/C care/education, pt denies having other discharge needs or concerns. Rodrick FARIASN CARISSA CM
[2025-04-28 11:37] VITALS: BP 117/78; PULSE 91; RESP 16; TEMP 36.8; O2SAT 98
== END 2025-04-28 13:22 | disposition home or self-care (01) ==
LOC: MS3 12:23 → SDC 12:23 → MS3 12:23
PROVIDERS: Anesthesiology; Admitting Provider Urology; PCP Registered Nurse; Referring Provider Urology; Visit Provider Urology
PROC: 0VT04ZZ Resection of Prostate, Percutaneous Endoscopic Approach (ICD-10-PCS; CPT 55866; principal; 2025-04-27 10:10)
DX: C61 Malignant neoplasm of prostate (principal); I10 Essential (primary) hypertension; Z79.899 Other long term (current) drug therapy; Z87.891 Personal history of nicotine dependence; N40.3 Nodular prostate with lower urinary tract symptoms; R35.1 Nocturia
CPT/HCPCS: 55866; 00865; 85025; 86850; 86900; 86901; 88309; 94668; 96361; 96365; 96366; 96375; 96376; 99221; A4216; G0378; J0744; J2405

== ENCOUNTER → 2025-06-07 | Outpatient (CLI) | payer BC, SELFPAY ==
[2025-06-07 14:02] LABS: PSA,Total- Diagnostic < 0.02 ng/mL (0.00-4.00)
== END | disposition home or self-care (01) ==
LOC: LAB 13:00
PROVIDERS: PCP Registered Nurse; Referring Provider Urology; Visit Provider Urology
DX: C61 Malignant neoplasm of prostate (principal)
CPT/HCPCS: 36415; 84153